=== PATIENT | male | born 1930 | race Caucasian/White ===

== ENCOUNTER 2016-11-22 13:14 | Emergency (ER) | payer MEDICARE, OTHER ==
[~2016-11-22] VITALS: Ht 180.3 cm; Wt 98.0 kg
[~2016-11-22 13:14] MED LIST: AMIODARONE HCL200 MG PO; AMOXICILLIN500 MG PO; ASPIRIN EC81 MG PO; ATENOLOL25 MG PO; AZITHROMYCIN250 MG PO; CARDIZEM CD120 MG PO; CLINDAMYCIN HC300 MG PO; DOXYCYCLINE HY100 MG PO; IRON PO; LEVOTHYROXINE200 MCG PO; MUPIROCIN22 GM TOP; POTASSIUM GLUC500 MG PO; PRADAXA75 MG PO; SLOW RELEASE47.5 MG PO; SYNTHROID175 MCG PO; TORSEMIDE10 MG PO; TRIAMCINOLONE A15 GM TOP; ZITHROMAX250 MG PO
[2016-11-22] MEDS ORDERED: MAGNESIUM400 M1 PO (13:30)
[2016-11-22] MEDS ORDERED: VITAMIN D400 UNI2 (13:31)
[2016-11-22] MEDS ORDERED: NORCO 5-325 TA1 EACH PO (15:26)
== END 2016-11-22 15:50 | disposition home or self-care (01) ==
LOC: ED 13:14
PROC: 0XQMXZZ Repair Left Thumb, External Approach (ICD-10-PCS; principal; 2016-11-22)
DX: S61.012A Laceration without foreign body of left thumb without damage to nail, initial encounter (principal); S05.22XA Ocular laceration and rupture with prolapse or loss of intraocular tissue, left eye, initial encounter; I11.0 Hypertensive heart disease with heart failure; I50.9 Heart failure, unspecified; I48.91 Unspecified atrial fibrillation; E03.9 Hypothyroidism, unspecified; Z85.828 Personal history of other malignant neoplasm of skin; Z96.652 Presence of left artificial knee joint; Z90.49 Acquired absence of other specified parts of digestive tract; Z79.899 Other long term (current) drug therapy; W01.0XXA Fall on same level from slipping, tripping and stumbling without subsequent striking against object, initial encounter
CPT/HCPCS: 12013; 70450; 71020; 99284

== ENCOUNTER 2018-02-17 07:52 | Inpatient (IN) | payer MEDICARE, OTHER ==
[~2018-02-17] VITALS: Ht 180.3 cm; Wt 90.7 kg
[~2018-02-17 07:52] MED LIST changes: +MAGNESIUM400 M1 PO; +NORCO 5-325 TA1 EACH PO; +VITAMIN D400 UNI2 PO
[2018-02-17] MEDS ORDERED: AMOXICILLIN500 MG PO (08:11)
[2018-02-17] MEDS ORDERED: TRIAMCINOLONE A15 G2 TOP (08:12)
[2018-02-17] MEDS ORDERED: TOBREX5 ML OD (16:16)
--- NOTE | 2018-02-18 07:48 | EKG ---
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 rate has increased BY 62 BPM Confirmed by BRAXTON ZHENG MD ([id number]) on 02/18/2018 7:48:37 AM Electronically Signed By: BRAXTON ZHENG MD 02/18/18 0748 PATIENT NAME: ELADIA HOWELLELISABETH COSBY Electrocardiogram DATE OF : [birth year] PHYSICIAN: BRAXTON ZHENG MD REPORT #: [id number] REPORT IS CONFIDENTIAL AND NOT TO BE RELEASED WITHOUT AUTHORIZATION
== END 2018-02-20 11:30 | disposition swing bed (61) | DRG 309 ==
LOC: ED 07:52 → CCU 09:51 → MS 02-18 14:30
PROVIDERS: ADMIT Internal Medicine
DX: I48.91 Unspecified atrial fibrillation (principal); L03.116 Cellulitis of left lower limb; L03.115 Cellulitis of right lower limb; I13.0 Hypertensive heart and chronic kidney disease with heart failure and stage 1 through stage 4 chronic kidney disease, or unspecified chronic kidney disease; I50.9 Heart failure, unspecified; N18.3 Chronic kidney disease, stage 3 (moderate); E11.22 Type 2 diabetes mellitus with diabetic chronic kidney disease; E78.5 Hyperlipidemia, unspecified; E03.9 Hypothyroidism, unspecified; M54.5 Low back pain; G47.30 Sleep apnea, unspecified; K21.9 Gastro-esophageal reflux disease without esophagitis; I89.0 Lymphedema, not elsewhere classified; D69.6 Thrombocytopenia, unspecified; S81.802A Unspecified open wound, left lower leg, initial encounter; S81.801A Unspecified open wound, right lower leg, initial encounter; Z85.46 Personal history of malignant neoplasm of prostate; Z79.2 Long term (current) use of antibiotics; Z79.01 Long term (current) use of anticoagulants; Z79.899 Other long term (current) drug therapy
CPT/HCPCS: 36415; 51701; 71045; 73630; 80048; 80053; 81001; 83605; 83735; 83880; 84484; 85025; 87040; 93005; 93010; 94660; 96361; 96365; 96375; 96376; 97110; 97116; 97162; 97166; 99285-25; C9113; G8978; G8979; J0692; J3475; J7030; J7040; J7060

== ENCOUNTER 2018-02-20 11:30 | Inpatient (IN) | payer MEDICARE, OTHER ==
[~2018-02-20] VITALS: Ht 180.3 cm; Wt 79.9 kg
[~2018-02-20 11:30] MED LIST changes: +TOBREX5 ML OD; +TRIAMCINOLONE A15 G2 TOP
--- NOTE | 2018-02-20 11:30 | NUR ---
PT ADMITTED TO SWING BED STATUS. SITTING UP IN BED WATCHING TV. IV INFUSING WNL. ASSESSMENT COMPLETED. PT DENIES NEEDS OR CONCERNS AT THIS TIME. CALL LIGHT WITHIN REACH.
--- NOTE | 2018-02-20 13:55 | NUR ---
PT REPORTS 7/10 LOW BACK PAIN. ASSISTED MULTIPLE TIMES TO REPOSITION IN BED. FLOATED HIPS ON PILLOWS AND MEDICATED WITH PRN TYLENOL. WATCHING FOOTBALL GAME. SON ELISABETH AND AT BEDSIDE. IV ABX STARTED, INFUSING WNL. CALL LIGHT WITHIN REACH.
--- NOTE | 2018-02-20 14:05 | NUR ---
PATIENT IN BED WATCHING TV. SON AND IN ROOM. VITAL SIGNS AND I&O DONE. CALL LIGHT WITHIN REACH. NO OTHER NEEDS AT THIS TIME
--- NOTE | 2018-02-20 14:06 | NUR ---
PATIENT DID NOT VOID DURING THIS PERIOD. RN NOTIFIED
--- NOTE | 2018-02-20 15:02 | NUR ---
PT RESTING IN BED. EYES CLOSED, RESP EVEN AND UNLABORED. AT BEDSIDE.
--- NOTE | 2018-02-20 15:40 | NUR ---
PT HAD LARGE INCONTINENT VOID IN BED. LINENS AND ATTENDS CHANGED. PT ASSISTED TO POSITION OF COMFORT. HIPS FLOATED ON PILLOWS AND BILATERAL LOWER EXTREMITIES ELEVATED ON PILLOWS. CALL LIGHT WITHIN REACH. AT BEDSIDE.
--- NOTE | 2018-02-20 15:41 | NUR ---
PARTIAL BED BEDBATH GIVEN. NEW GOWN AND DEPENDS. TROY CARE DONE. CALL LIGHT IN REACH. NO FURTHER NEEDS AT THIS TIME.
--- NOTE | 2018-02-20 16:00 | NUR ---
THIS RN ASSUMING CARE OF PT. THIS RN TO BEDSIDE TO CHECK ON PT. PT ASSISTED WITH REPOSITIONING IN BED. PT STATES HE HAS NO REQUESTS OR COMPLAINTS AT THIS TIME. AT BEDSIDE. CALL LIGHT WITHIN REACH.
--- NOTE | 2018-02-20 16:10 | NUR ---
REPORT GIVEN TO DAVID AGUILA.
--- NOTE | 2018-02-20 16:56 | NUR ---
ASSESSMENT DONE. PT REPOSITIONED IN BED. MILKSHAKE PROVIDED. PT REMAINS WITHIN FLUID RESTRICTIONS. PT REPORTS 5/10 PAIN AND STATES HE DOES NOT NEED ADDITIONAL PAIN MEDIAITON AT THIS TIME. BED RAILS UP. CALL LIGHT WITHIN REACH. PTS LEAVING FOR THE NIGHT. WARM BLANKETS PROVIDED.NO ADDITONAL REQUESTS OR COMPLAINTS. PT RESTING WITH EYES CLOSED. SNORNING NOTED.
--- NOTE | 2018-02-20 17:50 | NUR ---
PUMP ALARMING, INFUSION COMPLETE. IV FLUIDS CONTINUE INFUSING. MD CONSULTED REGARDING LEAVING PIV IN PLACE FOR LONGER THAN PROTOCOL. MD STATES OK TO LEAVE PIV IN LONG IT REMAINS PATENT AND WNL. ORDERS PLACED. PTS FAMILY AT BEDSIDE (SON, ELADIA), UPDATED ON PT CONDITION AND PLAN OF CARE, AND STATES ALL HIS QUESTIONS HAVE BEEN ANSWERED. PT STATES HE HAS NO ADDITIONAL REQUESTS OR COMPLAINTS AT THIS TIME. BED RAILSUP. CALL LIGHT WITHIN REACH.
--- NOTE | 2018-02-20 17:54 | NUR ---
PATIENT IN BED WATCHING TV. FAMILY IN ROOM. FRESH WATER GIVEN. CALL LIGHT IN REACH. NO FURTHER NEEDS AT THIS TIME.
--- NOTE | 2018-02-20 17:58 | NUR ---
PT TRANSITIONED TO SWING BED TODAY FOR LLE CELLULITIS. 2PA, FWW. PT TOLERATING CARDIAC DIET WITH 1800ML FLUID RESTRICTION WELL. TELE #6 SHOWS IRREGULAR RHYTHEM TODAY WITH FREQUENT PVC'S PER PT BASELINE. PT/OT INVOLVED WITH CARE, IN TO SEE PT TODAY. LLE CONTINUES TO BE RED AND HOT WITH EDEMA. SOME WEEPING FROM EXTREMITY NOTED THIS SHIFT. PT HAD INCONTINANT EPISODE TODAY, DEPENDS IN PLACE, URINAL AT BEDSIDE. IV ABX CONTINUE, MD ORDER TO LEAVE PIV IN PLACE LONG IT REAMINS PATENT AND WNL. PT USES CALL LIGTH APPROPRIATLY.
--- NOTE | 2018-02-20 19:12 | NUR ---
BEDSIDE REPORT RECEIVED FROM MINGO HOOPER. PT RESTING IN BED WITH EYES CLOSED. BREATHING EQUAL AND NON-LABORED. HOB ELEVATED. IVF INFUSING.
--- NOTE | 2018-02-20 19:22 | NUR ---
IN PT ROOM, IV SALINE LOCKED ORDERED. PT AWAKE, WATCHING TV AT THIS TIME. TISSUES PROVIDED. CPAP APPLIED. LIGHTS OFF IN ROOM REQUESTED.
--- NOTE | 2018-02-20 21:35 | NUR ---
BOILER MECHANIC LELAND AND I HELPED PATIENT USE THE BEDSIDE COMMODE USING WALKER AND BACK TO BED. CHANGED BED LINEN. V/S AND I&O DONE AND CHARTED.
--- NOTE | 2018-02-20 21:51 | NUR ---
PT ASSESSMENT COMPLETE. PT DROWSY, AWAKENS TO VOICE. REFUSES HOME CPAP AT THIS TIME. LUNG SOUNDS CLEAR THROUGHOUT ALL LOBES. HR IRREGULAR RHYTHM. 83-87 ON TELE 6. LEGS ELEVATED WITH PILLOWS. REDNESS NOTED BLE, STRONG PEDAL PULSES, WARMTH TO LLE. IV ANTIBIOTIC INFUSING WNL, FLUSHED WNL. CALL LIGHT IN REACH. ICE WATER PROVIDED.
--- NOTE | 2018-02-20 22:55 | NUR ---
IN PT ROOM TO CHECK ON PT, REPLACE TELE BATTERY. PT RESTING IN BED AWAKE, STATES "I WANT TO GO HOME, I DON'T FEEL WELL". PRN ZOFRAN ADMINISTERED, PRN TYLENOL FOR "GENERALIZED DISCOMFORT" PER PT. PT INCONTINENT OF URINE, ATTENDS, CHUX CHANGED. REDENNED AREA NOTED ON SCROTUM. BARRIER CREAM APPLIED. CALL LIGHT IN LAP.
--- NOTE | 2018-02-21 00:34 | NUR ---
CALL LIGHT ANSWERED, PT REQUESTING "SOMEONE COME IN HIS ROOM". INCONTINENT OF URINE, PT UPSET REGARDING INCONTINENCE, INABILITY TO USE URINAL IN BED. PT PLANS TO CALL FOR ASSISTANCE TO STAND AT BEDSIDE TO USE URINAL FOR NEXT VOID. ATTENDS AND CHUX CHANGED, BARRIER CREAM APPLIED TO SCROTUM AND BUTTOCKS. LEGS ELEVATED ON PILLOWS. CALL LIGHT IN REACH.
--- NOTE | 2018-02-21 01:25 | NUR ---
CALL LIGHT ANSWERED, PT ASSISTED TO REPOSITION IN BED, PT REFUSES TO HAVE LEGS ELEVATED AT THIS TIME. REFUSES CPAP. IV ANTIBIOTIC INFUSING WNL. PT HAS CALL LIGHT IN LAP. LIGHTS OFF IN ROOM.
--- NOTE | 2018-02-21 01:51 | NUR ---
IV CEFEPIME INFUSION COMPLETE. IV SALINE LOCKED. PT SLEEPING, DROWSY, AWAKENS TO VOICE AND BACK TO SLEEP. NO REQUESTS AT THIS TIME. CALL LIGHT IN LAP.
--- NOTE | 2018-02-21 03:09 | NUR ---
CALL LIGHT ANSWERED, 2PA TO BSC WITH FWW FOR VOID. CCU RN IN ROOM TO NOTIFY PT IN SVT, HR 130S-160S SUSTAINED. BP 130/86 (97). PT DENIES SOB, DENIES CHEST PAIN. HR BACK DOWN TO 95-100S IRREGULAR RHYTHM PRIOR TO RNS LEAVING ROOM. SPO2 98% ON RA. NOTIFIED. NO NEW ORDERS. CALL LIGHT IN REACH. PT INSTRUCTED TO STAY IN BED, USE URINAL FOR REMAINDER OF SHIFT.
--- NOTE | 2018-02-21 05:00 | NUR ---
PT RESTING IN BED, EYES CLOSED, BREATHING EQUAL AND NON-LABORED. CALL LIGHT IN LAP. HR IRREGULAR RANGING FROM 95-120S ON TELE 6. LIGHTS OFF IN ROOM.
--- NOTE | 2018-02-21 05:03 | NUR ---
PT ON SWING BED. NOTIFIED OF SVT, HR IN 130S-160S THIS SHIFT, VSS. PT INCONTINENT OF URINE. REDNESS NOTED ON SCROTAL AREA, BARRIER CREAM APPLIED. PT USING CALL LIGHT APPROPRIATELY. 2PA W FWW, PT ENCOURAGED TO STAY IN BED FOR MORNING HOURS D/T ELEVATED HR. TELE 6, HR IRREGULAR. LLE EDEMETOUS, REDNESS WITHIN MARGINS, PEDAL PULSES PALPABLE BLE, SENSATION INTACT. LEGS ELEVATED TOLERATED. PT REFUSES HOME CPAP THIS SHIFT.
--- NOTE | 2018-02-21 06:50 | NUR ---
ROUNDED ON PATIENT TO ADMINISTER SCHEDULED MEDICATIONS PER ORDER PER PRIMARY RNMARGO. IV ASSESSED TO BE PATENT AFTER ADJUSTING DRESSING, NO SIGNS OF INFILTRATION. IV ANTIBIOTIC INFUSING. DRESSING COMING UP ON EDGES AFTER MARGO RN ATTEMPTED TO ADJUST DRESSING AROUND IV. PATIENT MOVED DURING DRESSING ADJUSTMENT, IV NO LONGER PATENT. IV ANTIBIOTICS ON STANDBY. REPORTED TO DAY SHIFT RNSANDIE THAT IV ABX IS ON STANDBY AND HAS NO IV. MINGO HOOPER TO RESTARTE IV AND TO RETIME ANTIBIOTICS.
--- NOTE | 2018-02-21 07:15 | NUR ---
PT DROWSY, AWAKENS TO VOICE. ORIENTED X 3. INCONTINENT OF URINE, ATTENDS CHANGED. BARRIER CREAM APPLIED. IV INFILTRATED, D/C'D WNL. MINGO HOOPER TO RESTART IV AND RETIME SCANNED CEFEPIME. HANDOFF REPORT GIVEN TO MINGO HOOPER. HR REMAINS IN THE 120S, IRREGULAR RHTYHM ON TELE 6. PT FLOATING ON PILLOWS, REDNESS NOTED ON BACKSIDE, BLANCHABLE.
--- NOTE | 2018-02-21 07:30 | NUR ---
THIS RN RECEIVED REPORT FROM MINGO ARAGON. PT APPEARS PALE, TACHYCARDIC AND STATES "I FEEL LIKE CRAP." PT DENIES CHEST PAIN. VITALS TAKEN. MINGO ARAGON, STATES PIV HAD TO BE DC'D. CHARGE NURSE NOTIFIED OF PT CONDITION. CHARGE NURSE TO BEDSIDE. MD NOTIFIED. MD STATES TO GIVE MORNING MEDICATIONS EARLY. MEDICATIONS GIVEN. PT HAS DIFFICULTY SUCKING FROM STRAW. CHARGE NURSE, EDWIGE, AT BEDSIDE STARTING NEW PIV. FAMILY CALLED AND UPDATED.
--- NOTE | 2018-02-21 08:23 | NUR ---
MORNING ASSESSMENT DONE. MD TO BEDSIDE FOR EVALUATION. NEW PIV START ATTEMPTED, CHART NURSE AND CCU RN CALLED FOR ASSISTANCE, NO SUCESSFULL ATTEMPTS AT THIS TIME. AWAITING ADDITIONAL ASSISTANCE. PT REPORTS PAIN BUT IS UNABLE TO RATE HIS PAIN FACES SCALE SHOWS 6/10 PAIN. SEE MAR FOR MEDICATION GIVEN. PT CONTINUES TO HAVE DRY HACKING COUGH. LLE RED AND HOT. PT HAS INCONTINANCE EPISODE, DEPENDS CHANGED, TROY CARE DONE, BARRIER CREAM APPLIED. BED RAILS UP. CALL LIGHT WITHIN REACH. BED ALARM ON.
--- NOTE | 2018-02-21 09:38 | NUR ---
THIS RN TO ROOM TO CHECK ON PT. PT UP TO CHAIR AND SMILING. PT REPORTS "FEELING MUCH BETTER." HR NOW 80-90'S. WARM BLANKETS PROVIDED. PT ASSISTED WITH ORDERING BREAKFAST. CALL LIGHT WITHIN REACH. LEGS ELEVATED.
--- NOTE | 2018-02-21 10:14 | NUR ---
THIS RN TO ROOM TO CHECK ON PT. PT EATING BREAKFAST. WHEN ASKED TO RATE HIS PAIN PT STATES "[id number], JUST PICK ONE" AND STARTS LAUGHING. PT JOKING AND SMILING AND STATES HE IS "FEELING MUCH BETTER." TELE BATTERY REPLACED. EPHRAIM WORKING WITH PT TO START NEW PIV. NO ADDITIONAL REQUESTS OR COMPLAINTS. CALL LIGHT WITHIN REACH.
--- NOTE | 2018-02-21 11:00 | NUR ---
PER JOVANI Dick RN, 22 G IV PLACED IN RIGHT FOREARM ON FIRST ATTEMPT. PER REPORT FROM MINGO HOGAN, AND MINGO HOOPER, [address] WERE UNSUCCESSFUL.
--- NOTE | 2018-02-21 11:00 | NUR ---
THIS RN INFORMED THAT NEW PIV HAS BEEN PLACED. PIV ASSESSED, WNL, BLOOD RETURN NOTED. PT REPORTS PAIN IN RIGHT HIP. ASSISTED UP TO STAND TO REPOSITION. BRUISE NOTED ON RIGHT HIP. PAD PLACED BEHIND RIGHT HIP. PT STATES PAIN IS "BETTER." CEFEPIME RESTRATED, INFUSING CONCURRENTLY WITH IV FLUIDS. COLLET DRILLER AT BEDSIDE ASSISTING PT TO SHAVE. PT STATES HE WOULD LIKE A NAP. COLLET DRILLER AWARE. QUITE ENVIRONEMENT TO BE ESTABLISHED AFTER SHAVE. CALL LIGHT WITHIN REACH. AT BEDSIDE.
--- NOTE | 2018-02-21 11:06 | NUR ---
ATTEMPTED IV INSERTION NOTE. I WAS ASKED BY DR ZHENG TO EVALUATE FOR IV ACCESS AFTER MULTIPLE OTHER FAILED ATTEMPTS. THE RIGHT AC AND UPPER ARM IS COVERED WITH BANDAGES SO THE LEFT AC WAS EVALUATED. LOCAL ANESTHETIC WAS USED (1% LIDOCANE PLAIN 0.5 ML PER SITE) FOR FAILED ATTEMPTS TO START AN IV IN THE LEFT AC, LEFT BASILC 3CM ABOVE THE AC AND 6CM ABOVE THE AC. EACH TIME THE VEIN WAS ACCESSED BUT THE CATHETER WOULD NOT THREAD UP THE VEIN. JOVANI Alvarez FROM THE ER WAS CALLED AND SHE QUICKLY OBTAINED IV ACCESS IN THE RIGHT FOREARM WITH ONE ATTEMPT.
--- NOTE | 2018-02-21 11:51 | NUR ---
Patient requested a shave. face washed, upper body washed, fresh water given, call light in reach. patient is setting up in his shair in room. is at bed side.
--- NOTE | 2018-02-21 11:52 | NUR ---
MD CONSULTED REGARDING IV FLUIDS, MD STATES THEY ARE NO LONGER NEEDED. IV FLUIDS STOPPED PER MED ORDER. IV INFUSING CEFEPIME, NEW TUBING HUNG WITH NS SET TO FLUSH AFTER INFUSION IS COMPLETE. PT REPORTS 4/10 PAIN AND STATES HE DOES NOT NEED MEDICATION AT THIS TIME. PT UP TO CHAIR. AT CHAIRSIDE. CALL LIGHT WITHIN REACH. NAP TIME SIGN OFFERED. PT AND REFUSE THEY HAVE FAMILY COMING TO VISIT. NO ADDITIONAL REQUESTS OR COMLAINTS AT THIS TIME.
--- NOTE | 2018-02-21 14:09 | NUR ---
PTS LUNCH ARRIVED. THIS RN TO ROOM. PT REPOSITIONED IN CHAIR FOR LUNCH. PT EATING LUNCH AND VISITING WITH FAMILY. NO ADDITIONAL REQUESTS OR COMPLAINTS AT THIS TIME. CALL LIGHT WITHIN REACH.
--- NOTE | 2018-02-21 15:04 | NUR ---
MEDICATION DUE. TIFFANY, RN STATES IV INFUSION FINISHED AND SHE SALINE LOCKED PT. THIS RN TO ROOM TO START NEXT ABX INFUSION. PT REQUESTS ASSISTANCE UP TO RESTROOM. 2PA, FWW TO COMODE. PT VOIDS AND HAS BM. TROY CARE DONE. PT BACK TO CHAIR. PT DENIES NEED FOR PAIN MEDICATION AND STATING "I'M FEELING PRETTY GOOD." PIV ASSESSED, WNL. BLOOD RETURN NOTED. IV ABX STARTED (SEE APR). NO ADDITIONAL REQUESTS OR COMPLAINTS AT THIS TIME. AT BEDSIDE. CALL LIGHT WITHIN REACH.
--- NOTE | 2018-02-21 15:28 | NUR ---
PTS REQUESTS THAT HER SON, Mel ELADIA, BE CALLED AND UPDATED. CALL ATTEMPTED. NO ANSWER AT THIS TIME. WILL TRY AGAIN.
--- NOTE | 2018-02-21 15:39 | NUR ---
PATIENT IS UP IN HIS CHAIR, IS IN THE ROOM WITH HIM, ATE A GOOD LUCNH, WAS ABLE TO USE THE BED SIDE COMODE TWICE . FRESH WATER GIVEN AND CALL LIGHT IN REACH.
--- NOTE | 2018-02-21 15:40 | NUR ---
CALLED REGARDING MAGNESIUM ORDERS. STATES OK TO CHANGE ADMINISTRATION TIME TO 1999 TO BE GIVEN BETWEEN CEFEPIME INFUSIONS. NEW ORDERS PLACED.
--- NOTE | 2018-02-21 16:59 | NUR ---
PT CALL LIGHT ON. PT STATES "I FEEL MISERABLE." PT STATES HE "MAYBE" HAS A HEADACHE. PT REQUESTS TYLENOL. ENSURE MILKSHAKE OFFERED. PT SMILES AND STATES "THAT MIGHT HELP A LOT." ENSURE MILK SHAKE PROVIDED. THIS RN OFFERES TO PLAY A GAME WITH PT BUT PT STATES "I'M TOO TIRED." CALL LIGHT JIMMY REACH. NO ADDITIONAL REQUESTS OR COMPLAINTS.
--- NOTE | 2018-02-21 17:06 | NUR ---
PTS SON (DR. MONTILLA) CALLED AND UPDATED ON PT CONDITION. DR. MONTILLA VERBALIZES UNDERSTANDING AND STATES HE HAS NO ADDITIONAL QUESTIONS OR CONCERNS AT THIS TIME.
--- NOTE | 2018-02-21 17:27 | NUR ---
PT SWING BED FOR IV ABX R/T LLE CELLULITIS. EPISODES OF TACHYCARDIA EARLY THIS SHIFT AND LATE LAST SHIFT. ADDITIONAL CARDIAC MEDICAITONS GIVEN. HR 60-90'S FOR THE REMAINDER OF THIS SHIFT. PT REMAINS ON TELE #6. PT UP TO CHAIR. TYLENOL GIVEN X2 FOR BACK AND LEG PAIN. PT/OT INVOLVED FOR STRENGTH BUILDING. OCCATIONAL INCONTINANCE, DEPENDS IN PLACE. PT TOLERATING CARDIAC DIET WITH 1800ML FLUID RESTRICTION. BARRIER CREAM AND DEPENDS IN PLACE, FRAGILE SKIN. NEW PIV TODAY. CPAP MACHINE AT BEDSIDE FOR SLEEP. IV ABX. MAG RIDER DUE THIS EVENING. VOIDING QUANTITY SUFFICIENT. PT INCONSISTANT WITH CALL LIGHT.
--- NOTE | 2018-02-21 17:45 | NUR ---
PT ASSISTED UP TO COMODE. PT VOIDS 250ML WITHOUT ISSUE. FRESH DEPENDS PLACED. TROY CARE DONE. PT BACK TO CHAIR. WARM BLANKETS PROVIDED. CALL LIGHT WITHIN REACH.
--- NOTE | 2018-02-21 19:00 | NUR ---
PT REQUESTS ASSISTANCE BACK TO BED. PT ASSISTED UP FROM CHAIR, 2PA, FWW. ATTENDS CHANGED, TROY CARE DONE. PT BACK TO BED. WARM BLANETS PROVIDED. PT STATES "SOMETHING JUST DOESN'T FEEL RIGHT." PT ASKED IF HE IS UNCOMFORTABLE. PT STATES "NO THATS NOT IT." PT ASKED IF HE IS CONFUSED. PT STATES "YES." PT REORIENTED TO PLACE, TIME, AND EVENTS. MENTAL RELAXATION DONE. PT RELAXES TOES, KNEES, HIPS, ARMS, SHOULDERS AND FINALLY FACIAL MUSLCES AT THE END OF WHICH PT IS DOZING. RESPIRATIOS REGULAR RATE AND RHYTHEM. HR = 80, SR WITH OCCATIONAL PVC'S. LIGHT DIMMED. FOOTBALL GAME REAMINS ON. REPORT GIVEN TO GRAHAM, RNS. CALL LIGHT WITHIN REACH. NO ADDITIONAL REQUESTS OR COMPLAINTS.
--- NOTE | 2018-02-21 19:22 | NUR ---
RECIEVED CHANGE OF SHIFT REPORT FROM SANDIE AGUILA. PATIENT RESTING IN BED, AWAKES TO VERBAL STIMULI. PATIENT DENIES PAIN. WHITE BOARD UPDATED. NO MORE NEEDS AT THIS TIME. CALL LIGHT WITHIN REACH.
--- NOTE | 2018-02-21 20:20 | NUR ---
ASSESSMENT COMPLETE. PATIENT DENIES HAVING PAIN. IV ASSESS TO BE PATENT, NO SIGNS OF REDNESS OR SWELLING, PATIENT DENIES PAIN. SCHEDULED MEDICATIONS PROVIDED PER ORDER. SON AT BEDSIDE VISITING WITH PATIENT. VITALS ASSESSED AND RECORDED. INPUT AND OUTPUT RECORDED. PATINET DENIES HAVING DIFFICULTY BREATHING, SOB, OR CHEST PAIN. TELE MONITOR 6, HR: 73. BLE ELEVATED ON 2 PILLOWS. LLE RED AND WARM TO TOUCH. ENCOURAGED/EDUCATED PATIENT ON INCREASING FLUID INTAKE TO MEET DAILY FLUID RESTRICTION. WARM BLANKET PROVIDED TO PATIENT. POSSESSIONS AT BEDSIDE. NO MORE NEEDS AT THIS TIME. CALL LIGHT WITHIN REACH.
--- NOTE | 2018-02-21 21:40 | NUR ---
IV ABX INFUSING PER ORDER. PATIENT RESTING IN BED. DENIES ANY NEEDS AT THIS TIME. CALL LIGHT WITHIN REACH.
--- NOTE | 2018-02-21 23:07 | NUR ---
PATIENT CALLED WANTING TO LAY ON LEFT SIDE. DONE.
--- NOTE | 2018-02-21 23:18 | NUR ---
PATIENT REPOSITIONED IN BED TO HIS LEFT SIDE. ALLYVN PLACED ON COCYX PATIENT HAS A RED SPOT ON HIS COCYX, IT IS BLANCHABLE. PATIENT DENIES ANY FURTHER NEEDS CALL LIGHT IN REACH.
--- NOTE | 2018-02-22 00:22 | NUR ---
ROUNDED ON PATIENT RESTING IN BED, RESPIRATORY RATE IS EVEN AND UNLABORED, RR: 18. IV ABX INFUSING PER ORDER. NO SIGN OF TENSING OR GRIMACING. CALL LIGHT WITHIN REACH.
--- NOTE | 2018-02-22 01:00 | NUR ---
ROUNDED ON PATIENT TO REPOSITION IN BED. SKIN ASSESSMENT COMPLETE. PRN PAIN MEDICATION PROVIDED FOR GENERALIZED DISCOMFORT AND PAIN ON RIGHT SIDE OF BUTTOCKS. CALL LIGHT WITHIN REACH. NO MORE NEEDS AT THIS TIME.
--- NOTE | 2018-02-22 02:52 | NUR ---
ROUNDED ON PATIENT. PATIENT AWOKE WHEN THIS RN ENTERED ROOM. PATIENT DENIES PAIN AND STATES FEELING "UNCOMFORTABLE". THIS RN LEFT ROOM TO GET ANOTHER RN TO REPOSITION PATIENT. UPON RETURNING PATIENT FOUND RESTING IN BED WITH EYES CLOSED, RESPIRATORY RATE, EVEN AND UNLABORED. NO SIGN OF TENSING OR GRIMACING. CALL LIGHT WITHIN REACH.
--- NOTE | 2018-02-22 03:32 | NUR ---
PATIENT ASSISTED TO THE BSC A 2PA W/FWW. PATIENT WAS INCONTINENT OF URINE. PATIENT WAS ALSO ABLE TO VOID. PATIENTS ATTEND CHANGED. TROY CARE COMPLETED. BARRIER CREAM APPLIED. PATIENT IS NOW BACK IN BED RESTING. PATIENT DENIES ANY FURTHER NEEDS. CALL LIGHT IN REACH. WARM BLANKET PROVIDED.
--- NOTE | 2018-02-22 05:03 | NUR ---
SLEPT ON AND OFF THROUGHOUT THE NIGHT. SWING BED. PRN PAIN MEDICATION PROVIDED X1 FOR PAIN AND GENERALIZED DISCOMFORT. ALLYVEN PLACED ON REDDENED AREA OVER COCCYX. CARDIAC DIET WITH 1800 FLUID RESTRICTION, ENCOURAGED PO FLUIDS TO MEET 1800 FLUID RESTRICTION. PATIENT ABLE TO STAND AND PIVOT TO BEDSIDE COMMODE A 2 PA WITH FWW. OCCASIONALLY INCONTINENT. TELE 6, IRREGULAR RHYTHM, HR 70-80'S. RESTLESS THROUGHOUT THE NIGHT. WORKING WITH PT/OT. RECIEVED X1 MAG RIDER.
--- NOTE | 2018-02-22 05:13 | NUR ---
PATIENT ASSISTED TO STAND AT THE BEDSIDE. PATIENT WAS ABLE TO VOID AND USE THE URINAL. PATIENT WAS ALSO INCONTINENT OF URINE. ASSISTANT FLOOR COVERING PRINTER ASSISTED IN CHANGING BEDDING. TROY CARE COMPLETED. PATIENT IS NOW BACK IN BED RESTING. PATIENT DENIES PAIN AND SOB. PATIENT DENIES ANY NEEDS. CALL LIGHT IN REACH. INTAKE AND OUTPUT RECORDED.
--- NOTE | 2018-02-22 06:00 | NUR ---
ROUNDED ON PATIENT FOR MEDICATION ADMINSTRATION PER MAR ORDER. PATIENT HOB ELEVATED PER PATIENT REQUEST. CALL LIGHT WITHIN REACH. NO MORE NEEDS AT THIS TIME.
--- NOTE | 2018-02-22 07:31 | NUR ---
pATIENT WAS AWAKE SETIING UP WATCHING TV, FACE WASHED CALL LIGHT IN REACH, PATIENT IS ON FULID RESTRICTION. NO EXTRA WATER GIVEN, CALL LIGHT IN REACH.
--- NOTE | 2018-02-22 07:46 | NUR ---
REPORT RECEIVED FRIM BUFF WHEEL FABRICATOR RN. PT AAO IN BED WITH BREAKFAST. DENIES PAIN OR NEEDS. CALL LIGHT IN REACH.
--- NOTE | 2018-02-22 08:38 | NUR ---
PT CALLED TO USE BSC. ATTENDS ALREADY WET. LORENA, FIREPROOF DOOR MAKER, AND THIS RN HELPED PATIENT TO BSC, CHANGED ATTENDS, PROVIDED BED BATH WITH WARM WIPES, AND CHANGED LINENS. TRANSFERRED FROM BSC TO RECLINER. WARM BLANKETS PROVIDED AND BILAT LEGS ELEVATED WITH PILLOWS. URINATED 200 MORE WHEN ON BSC. PATIENT TOLERATED TRANSFERS WELL. 2PA FWW.
--- NOTE | 2018-02-22 09:45 | NUR ---
PT REPORTING 10/10 PAIN IN BUTTOCKS. PT UP IN CHAIR WITH PILLOWS UNDER BUTTOCKS. TYLENOL ADMINISTERED. DONUT PLACED UNDER BUTTOCKS. PT REPORTS "IT FEELS BETTER".
--- NOTE | 2018-02-22 10:20 | NUR ---
PHYSICAL THERAPY IN TO WORK WITH PT. SBA TO BATHROOM. 1 MED BM THEN BACK TO CHAIR.
--- NOTE | 2018-02-22 11:14 | NUR ---
OT AT BEDSIDE WORKING WITH PT.
--- NOTE | 2018-02-22 14:07 | NUR ---
PT SITTING IN CHAIR, HAD JUST FINISHED LUNCH. EVERYTHING GOOD EXCEPT THE SOUP! WAS JUST LEAVING FOR APPT, VERY PLEASANT. PT FEELING BETTER, ALERT AND RESPONSEIVE. PT REQUESTED PRAYER, WILL FOLLOW NEEDED
--- NOTE | 2018-02-22 14:52 | NUR ---
ORDER RECEIVED FOR WOUND CONSULT. PATIENT INTERVIEWED AND HE REPORTS WEARING A COMPRESSION-TYPE SUPPORT (KNEE HIGH) AT HOME. PATIENT REPORTS HIS USUALLY PUTS THEM ON EVERY MORNING. PATIENT VERBALIZES THAT HE DOES NOT TOLERATE COMPRESSION SOCKS. PATIENT DOES REPORT SENSITIVITY TO HIS FEET. AN ALLEVYN DRESSING IS NOTED TO THE POSTERIOR ASPECT OF THE PATIENTS RIGHT CALF. A SMALL AMOUNT OF DRAINAGE IS NOTED THROUGH THE DRESSING. CHRONIC DISCOLORATION IS NOTED TO LEGS, BILATERALLY. PATIENT'S LEGS ARE ELEVATED WITH THE RECLINER AND HE TOLERATES THAT WELL. PATIENT IS AMICABLE TO NAV WRAPS BEING APPLIED TO HIS LEGS, BILATERALLY. PT IS PRESENT IN THE ROOM TO AMBULATE WITH PATIENT.
--- NOTE | 2018-02-22 15:07 | NUR ---
NAV WRAPS APPLIED TO LEGS, BILATERALLY. PATIENT TOLERATES THAT WELL. SMALL, DRY, BROWN WOUND IS NOTED TO THE BALL OF HIS LEFT FOOT.
--- NOTE | 2018-02-22 17:00 | NUR ---
PT SBA BACK TO BED. TOLERATED WELL.
--- NOTE | 2018-02-22 19:10 | NUR ---
SHIFT REPORT RECEIVED. PATIENT REPORTS HE HAS BEEN INCONTINENT OF URINE AND REQUEST ASSISTANCE. BELT BUILDER HELPER TAMIE NOTIFIED TO ASSIST.
--- NOTE | 2018-02-22 20:19 | NUR ---
WITH THE HELP OF MINGO MATHEW WE CHANGED PT'S ATTEND INCONTINENT OF URINE. GOWN CHANGED WELL. BEDSIDE TABLE AND CALL LIGH IN REACH. PT NEEDS NOTHING MORE AT THIS TIME.
--- NOTE | 2018-02-22 20:21 | NUR ---
VITALS AND I&OS DONE AND CHARTED.
--- NOTE | 2018-02-22 22:30 | NUR ---
EVENING MEDS PROVIDED TO PATIENT PER ORDER. PATIENT IS AAOX3, HOWEVER APPEARS FORGETFUL. PATIENT HAS BEEN INCONTINENT OF LARGE AMOUNTS OF URINE. PATIENT STATES "THEY TOLD ME TO JUST PEE IN THE BED AND THEN IT WILL GET CLEANED UP". REMINDED PATIENT TO USE CALL LIGHT FOR ASSIST TO THE BATHROOM OR TO USE THE URNAL. PATIENT AGREES. FRESH ATTENDS AND LINEN PROVIDED, BARRIER CREAM APPLIED. ALYVEN ON COCCYX IN PLACE. MULTIPLE BRUISES NOTED. DRESSINGS ON RIGHT ARM ARE INTACT. IV SITE WNL, FLUSHES EASILY. LUNGS ARE CLEAR WITH DIMINISHED BASES. ABD ROUND, SOFT, BOWEL SOUNDS ACTIVE. REDNESS NOTED ON INNER LEFT THIGH, AREA OUTLINED. BILATERAL EDEMA IN LOWER EXTREMITITES, 3+ ON THE LEFT AND 2+ ON THE RIGHT. DRESSINGS ON LOWER EXTREMITIES PLACED BY WOULD CONSULT NURSE, LEFT INTACT. PATIENT REPORTS BEING COMFORTABLE AT THIS TIME. CALL LIGHT IN HAND.
--- NOTE | 2018-02-23 00:45 | NUR ---
PATIENT CALLED TO BE COVERED WITH ADDITIONAL BLANKETS. CREDIT REVIEW OFFICER MAY ASSISTED.
--- NOTE | 2018-02-23 02:26 | NUR ---
PATIENT UP TO BSC. 2PA. TOLERATED WELL. NEW ATTENDS AND LINEN PROVIDED. PATIENT HEAVILY SATURATION HIS ATTENDS. PATIENT BACK TO BED. POSITIONED FOR COMFORT. CALL LIGHT IN REACH.
--- NOTE | 2018-02-23 02:34 | NUR ---
WITH THE HELP OF MINGO MATHEW WE DID A COMPLETE BED CHANGE DUE TO INCONTINCE OF URINE. HELPED PT TO THE BSC AND BACK TO BED WITH HIS FWW. BEDSIDE TABLE AND CALL LIGHT IN REACH. PT NEEDS NOTHING MORE AT THIS TIME.
--- NOTE | 2018-02-23 03:00 | NUR ---
PATIENT CALLED FOR ASSISTANCE. DRAG CAR RACER WENT INTO THE ROOM. PATIENT'S IV ABX FINISHED. PATIENT NOW SL. PATIENT TALKING ABOUT GETTING UP FOR THE DAY AND BEING UNABLE TO SLEEP. DRAG CAR RACER ENCOURAGED PATIENT TO ATTEMPT TO SLEEP FOR A WHILE LONGER. PATIENT AGREES.
--- NOTE | 2018-02-23 03:15 | NUR ---
PATIENT REQUEST HIS TV BE TURNED ON. STATES "I CAN'T SLEEP SO I MIGHT WELL DO SOMETHING TO BE CONNECTED TO THIS WORLD". ENCOURAGED PATIENT TO LEAVE TV OFF AND ATTEMPT TO SLEEP. PATIENT REPLIED "I'M TOO WORRIED TO SLEEP, I MIGHT NOT WAKE UP". REASSURED PATIENT THAT HIS CURRENT CONDITION HAS BEEN IMPROVING AND REMINDED HIM OF IMPORTANCE OF RESTING TO HAVE ENERGY FOR PHYSICAL THERAPY IN THE MORNING. PATIENT REPLIED THAT HE STILL COULDN'T SLEEP AND WANTS THE TV ON. TV TURNED ON AND REMOTE GIVEN TO PATIENT PER REQUEST.
--- NOTE | 2018-02-23 03:25 | NUR ---
PATIENT REPORTS THE URGE TO VOID. ASSISTED PATIENT UP TO BS, 2PA W/FWW. PATIENT TOLERATED WELL. PATIENT SAT ON BSC FOR SEVERAL MINS AND THEN REQUEST TO SIT IN THE RECLINER AND "GET UP FOR THE DAY". DISCUSSED THE TRANSFER MAN HOUR AND IMPORTANCE OF SLEEP. PATIENT REQUEST TO CALL HIS . TOOL MARKER ASSURED PATIENT HE SHOULD SLEEP FOR A FEW HOURS PRIOR TO GETTING UP FOR THE DAY AND THAT WE WOULD ASSIST TO CALL HIS IN THE MORNING. PATIENT IS AGREEABLE TO THIS. PRN TYLENOL PROVIDED FOR GENERAL ACHES AND PATIENT VERBILIZED GRATITUDE TO STAFF. PATIENT RESTING IN BED NOW, WARM BLANKET PROVIDED. CALL LIGHT IN REACH.
--- NOTE | 2018-02-23 04:23 | NUR ---
HELPED PT USE THE URINAL. CALL LIGHT IN REACH. PT NEEDS NOTHING MORE AT THSI TIME.
--- NOTE | 2018-02-23 05:30 | NUR ---
PATIENT HAS BEEN INSISTENT THAT HE NEEDS A BOWL TO MIX A SOLUTION FOR DENTAL IMPRESSIONS FOR HIMSELF. PATIENT IS ORIENTED TO SURROUNDINGS, EVENT, AND SELF. ATTEMPTS TO REORIENT PATIENT TO LACK OF SUPPLIES OR ABILITY TO MAKE DENTAL IMPRESSIONS IN THE HOSPITAL HAVE BEEN UNSUCESSFUL. RN CARDIOVASCULAR ICU IN TO TALK WITH PATIENT. PATIENT APPEARS FRUSTERATED.
--- NOTE | 2018-02-23 05:45 | NUR ---
PATIENT YELLING AT LAB STAFF THAT HE NEEDS TO GET UP FOR THE DAY, LAB REQUEST ASSISTANCE. INFORMED PATIENT THAT NURSING STAFF WOULD GET HIM UP FOR THE DAY SOON TWO STAFF WERE AVAILABLE TO HELP WITH TRANSFER AND LAB WAS DONE DRAWING BLOOD. PATIENT STATES "IT TAKES AN HOUR TO GET ANYONES HELP AROUND HERE, NO ONE HAS BEEN ANSWERING MY CALL LIGHT OR HELPING ME". REMINDED PATIENT THAT CALL LIGHT WAS ANSWERED PROMPTLY THROUGHOUT THE NIGHT AND ASSURED HIM I WOULD RETURN WITH ASSISTANCE ABRIL.
--- NOTE | 2018-02-23 05:55 | NUR ---
SALES ASSOCIATE KEY HOLDER AND MAY ASSISTED PATIENT UP TO BSC. PATIENT TOLERATED 2PA TRANSFER WELL. PATIENT ABLE TO VOID, FRESH ATTENDS IN PLACE. THIS RN AND SOFTWARE APPLICATIONS DEVELOPER MAY ASSISTED PATIENT ONTO STANDING SCALE AND THEN TO RECLINER. PATIENT REQUEST TO CALL HIS , WHICH WAS DONE FOR HIM. CALL LIGHT IN PATIENT'S LAP AND PATIENT TALKING TO HIS ON THE PHONE.
--- NOTE | 2018-02-23 06:10 | NUR ---
WITH THE HELP OF MINGO HA WE HELPED PT TO THE BSC WITH HIS FWW. WITH THE HELP FROM MINGO MATHEW WE GOT PT TO THE CHAIR FROM THE BSC WITH HIS FWW. DID A DAILY STANDING WEIGHT WELL. BEDSIDE TABLE AND CALL LIGHT IN REACH. PT CALLED HIS ON THE PHONE PER HIS REQUEST. BLANKET GIVEN .
--- NOTE | 2018-02-23 07:00 | NUR ---
PATIENT DID NOT APPEAR TO SLEEP HARDLY AT ALL THIS SHIFT. PATIENT DENIES PAIN. APPEARED TO BECOME MORE CONFUSED THE NIGHT WENT ON, REORIENTED PRN. 2PA UP TO BSC. LARGE AMOUNT OF URINE OUTPUT. 9LB WEIGHT LOSS SINCE YESTERDAY. FLUID RESTRICTION, PATIENT HAS NOT BEEN MEETING THIS. ENCOURAGE ORAL FLUIDS. NAV WRAPS TO MEENA LOWER EXTREMITIES. EDEMA IMPROVED. DRESSING INTACT ON ARMS AND LEGS.
--- NOTE | 2018-02-23 07:35 | NUR ---
PT AWAKE, ALERT AND ORIENTED X3. PER REPORT PT FORGETFUL. PT DENIES PAIN AT THIS TIME. PT REQUESTED TO VOID DURING SHIFT CHANGE, Q/S. PERSONAL SUPPLIES AND CALL LIGHT WITHIN REACH OF PT.
--- NOTE | 2018-02-23 08:32 | NUR ---
REPOSITIONED PT IN HIS CHAIR, GOT HIM 2 WARM BLANKETS AND ALSO GAVE HIM A NEW WATER CUP. CALL LIGHT IN PLACE.
--- NOTE | 2018-02-23 10:13 | NUR ---
VEE PLACED UNDER PT'S BOTTOM PER DOC ORDER PT IS SITTING UP IN CHAIR.
--- NOTE | 2018-02-23 10:26 | NUR ---
MED REC COMPLETE
--- NOTE | 2018-02-23 11:00 | NUR ---
PT UP WALKING IN HW WITH PT WITH WALKER AND STANDBY ASSIST. PT TOLERATING WALK WELL.
--- NOTE | 2018-02-23 11:51 | NUR ---
PT SITTING IN CHAIR, BY HIS SIDE. BOTH PLEASANT, PT'S IS VERY AFFIRMING, AND TRYING TO BE POSITIVE IN REGARDS TO CHANGES COMING TO THEIR LIFE THEY HAVE KNOWN IT. FR NIELSON CAME IN, EXTENDED A BLESSING. WILL FOLLOW NEEDED
--- NOTE | 2018-02-23 11:52 | NUR ---
FAMILY AT BEDSIDE VISITING WITH PT. PT DENIES NEEDS AT THIS TIME. LUNCH ORDER TO BE PLACED BY FAMILY PER THEIR REQUEST. PERSONAL SUPPLIES AND CALL LIGHT WITHIN REACH OF PT.
--- NOTE | 2018-02-23 14:27 | NUR ---
PATIENT HAS FRUIT SITTING ON BEDSIDE TABLE FROM TODAY'S MEALS. HE ATE LUNCH WELL YESTERDAY. ON A 2 GRAM SODIUM DIET WITH 1800 ML FLUID RESTRICTION. I MENTIONED TO HIM AND HIS THAT I WANT HIM TO EAT WELL, JUST NOT HIGH SODIUM FOODS. WILL PROVIDE MORE EDUCATION IF APPROPRIATE UPON DISCHARGE.
--- NOTE | 2018-02-23 17:22 | NUR ---
SWING BED. IN CHAIR FOR MEALS; MUST HAVE DOUGHNUT UNDER BOTTOM WHILE IN CHAIR. PT DENIES PAIN. ON RA. SL WITH ABX. CARDIAC DIET WITH 1800ML FLUID RESTRICT. COCCYX RED. PIVOT TRANSFER TO BSC 2PA WITH WALKER. INCONT URINE AT TIMES. AFIB HX THIS ADMIT. PT/OT WORKING WITH PT.
--- NOTE | 2018-02-23 20:15 | NUR ---
PATIENT HAS C/O NAUSEA AND 6/10 LOW BACK PAIN. TYLENOL GIVEN PO AND 4MG SL/ZOFRAN GIVEN.
--- NOTE | 2018-02-23 21:00 | NUR ---
PATIENT'S BACKACHE DOWN TO 03/02 AND NAUSEA GONE. AMBULATED WITH THIS RN 1PA WITH FWW TO THE BATHROOM PATIENT THOUGHT HE WAS GOING TO HAVE A BM, BUT ONLY VOIDED. PATIENT BACK IN BED NOW, BED ALARM ON. HEAL PROTECTORS ON NAV WRAPS TO BOTH LOWER LEGS. PATIENT IN FOWLERS POSITION. PATIENT HAS CALL LIGHT AND PO FLUIDS IN REACH AND IS GOING TO TRY AND GET SOME SLEEP.
--- NOTE | 2018-02-23 21:23 | NUR ---
VITALS AND I&OS DONE AND CHARTED. BEDSIDE TABLE AND CALL LIGHT IN REACH. PT NEEDS NOTHING AT THIS TIME.
--- NOTE | 2018-02-23 23:00 | NUR ---
HELPED PT TO GET REPOSITIONED TO HIS COMFORT IN BED. BEDSIDE TABLE AND CALL LIGHT IN REACH.
--- NOTE | 2018-02-23 23:45 | NUR ---
PATIENT RESTING QUIETLY IN FOWLERS POSITION. EYES CLOSED RESPIRATIONS EVEN AND REGULAR. NO S/S OF DESTRESS. RESP RATE 16BPM.
--- NOTE | 2018-02-24 00:01 | NUR ---
HELPED PT WITH URINATING IN HIS URINAL. I EMPTIED, RINSED AND CHARTED AMOUNT. PT NEEDS NOTHING MORE AT THIS TIME. BEDSIDE TABLE AND CALL LIGHT IN REACH.
--- NOTE | 2018-02-24 02:11 | NUR ---
CHANGED PT'S ATTENDS INCONTINENT OF URINE. REPOSITIONED HIM TO HIS COMFORT. BEDSIDE TABLE AND CALL LIGHT IN REACH. PT NEEDS NOTHING MORE AT THIS TIME.
--- NOTE | 2018-02-24 04:09 | NUR ---
PATIENT JUST AMBULATED TO THE BATHROOM 1PA WITH THIS RN AND FWW, PATIENT THOUGHT HE NEEDED TO HAVE A BM, BUT ONLY URINATED. BACK TO BED WITH THE SAME METHOD. DAILY WEIGHT [id number]=184.1LBS. PATIENT HAS NO C/O PAIN AND IN FOWLERS POSITION ON HIS LEFT SIDE AT THIS TIME.
--- NOTE | 2018-02-24 06:10 | NUR ---
PATIENT HAS HAD NO MORE C/O BACKACHE OR NAUSEA SINCE TYLENOL AND MEDS AT THE BEGINING PART OF THE SHIFT. PATIENT HAS CALLED TO AMBULATE WITH FWW AND 1PSBA TO THE TOILET X2 THINKING HE NEEDED TO HAVE A BM, BUT ONLY HAD GAS. 1 EPISODE OF URINARY INCONTINENCE, THE REST OF THE TIME HE HAS BEEN ABLE TO USE THE TOILET OR URINAL. PATIENT IS CURRENTLY RESTING QUIETLY. EYES CLOSED RESPIRATIONS REGULAR AND EVEN.
--- NOTE | 2018-02-24 07:26 | NUR ---
PT SLEEPING IN BED AT THIS TIME, RESP EVEN AND NON LABORED. PT APPEARS WITHOUT DISCOMFORT. PER REPORT PT VOIDING Q/S. PERSONAL SUPPLIES AND CALL LIGHT WITHIN REACH.
--- NOTE | 2018-02-24 09:55 | NUR ---
PT SITTING UP IN CHAIR, RESP EVEN AND NON LABORED. PT DENIES PAIN AT THIS TIME. PT VOIDING Q/S. PERSONAL SUPPLIES WITHIN REACH OF PT.
--- NOTE | 2018-02-24 10:56 | NUR ---
PT UP AMBULATING IN KERR WITH P.T. VISITING WITH MOST ANYONE HE SEES HE IS UP. SAID IRON AND GAVE ENCOURAGEMENT. WILL FOLLOW NEEDED
--- NOTE | 2018-02-24 14:04 | NUR ---
PT HAS VISITOR AT THIS TIME. PT DENIES PAIN. PERSONAL SUPPLIES AND CALL LIGHT WITHIN REACH.
--- NOTE | 2018-02-24 16:37 | NUR ---
ELLEVYN DRESSING CHANGED TO COCCYX IT WAS PEELING OFF. SKIN APPEARS RED UNDER DRESSING, BLANCHABLE.
--- NOTE | 2018-02-24 17:33 | NUR ---
PT ON RA. DENIES PAIN. SWING BED. UP IN CHAIR FOR MEALS; DOUGHNUT UNDER BOTTOM WHEN IN CHAIR. SL WITH ABX. COCCYX RED; ALLYVN INTACT. CARDIAC DIET, 1800ML FLUIDS REST. 2PA TO BR WITH WALKER. WORKING WITH PT/OT.
--- NOTE | 2018-02-24 17:55 | NUR ---
PT IN BED EATING DINNER, SITTING UP. FAMILY AT BEDSIDE VISITING. PT DENIES NEEDS AT THIS TIME.
--- NOTE | 2018-02-24 20:00 | NUR ---
PATIENT'S WATER GLASSED FILLED, PATIENT HAVING NO PAIN AND SITTING IN BED WATCHING TV.
--- NOTE | 2018-02-24 21:39 | NUR ---
CHARGE NURSE ROUNDING NOTE: IN BED, CPAP AT BEDSIDE, DENIES ANY SOB OR PAIN VISITING WITH FAMILY
--- NOTE | 2018-02-24 22:00 | NUR ---
PM ASSESSMENT DONE AND PATIENT GOING TO TRY AND GET SOME SLEEP VS STABLE.
--- NOTE | 2018-02-25 00:10 | NUR ---
PATIENT REPOSITIONED TO HIS LEFT SIDE. PATIENT HAS BEEN RESTING QUIETLY, RESPIRATIONS REGULAR AND EVEN, NO COPLAINTS OF PAIN.
--- NOTE | 2018-02-25 02:05 | NUR ---
PATIENT REPOSITIONED TO HIS RIGHT SIDE. NO C/O PAIN AND RESPIRATIONS HAVE MENDY REGULAR AND EVEN.
--- NOTE | 2018-02-25 04:13 | NUR ---
PATIENT HAS BEEN RESTING, CALL LIGHT IN REACH. FRESH WATER GIVEN
--- NOTE | 2018-02-25 06:10 | NUR ---
PATIENT HAS RESTED MOST OF THE NIGHT. TURNED Q2 HOURS. PATIENT IS STILL RESTING QUIETLY EYES CLOSED RESPIRATIONS REGUALR AND EVEN. PATIENT HAS DENIED ANY PAIN THROUGH THE NIGHT AND SAYS HE HAS RESTED WELL.
--- NOTE | 2018-02-25 07:05 | NUR ---
BEDSIDE HANDOFF REPORT RECEIVED FROM PAPERHANGER APPRENTICE RN. PT SLEEPING, LEFT UNDISTURBED. BED ALARM IN PLACE.
--- NOTE | 2018-02-25 09:15 | NUR ---
PT SITTING IN CHAIR EATING BREAKFAST. PT TACHYCARDIC, HR 120, GIVEN SCHEDULED AMIODERONE, NOTIFIED, PLAN TO REASSESS HR IN 45 MIN. PT DENIES PAIN. PT ON ROOM AIR, LUNG SOUNDS CLEAR. DENIES CHEST PAIN/SOB. PT WITH GOOD APPETITE, TOLERATING DIET, BOWEL TONES ACTIVE. PT WITH EDEMA TO BILATERAL THIGHS, NAV WRAP TO LOWER LEGS, MINIMAL EDEMA TO LOWER LEGS, PULSE PALPABLE. IV INFUSING ABX. PT ORIENTED TO ALL BUT DATE. PT DENIES OTHER NEEDS AT THIS TIME. DISCUSSED PLAN OF CARE FOR THE DAY. CALL LIGHT WITHIN REACH.
--- NOTE | 2018-02-25 11:50 | NUR ---
PT SITTING IN CHAIR. PT COMPLAINT OF PAIN TO SCARUM, ASSESSED, BLACHANBLE REDNESS PRESENT, ALLEVYN APPLIED. PT REPOSITIONED IN CHAIR WITH DOUGHNUT CUSHION IN PLACE. PT DENIES OTHER NEEDS AT THIS TIME.
--- NOTE | 2018-02-25 13:01 | NUR ---
PER P.T. PT REFUSED P.T., NOT HAVING A GOOD DAY. PT SITTING IN CHAIR. PT EMOTIONAL, THERAPEUTIC COMMUNICATION PROVIDED. DISCUSSED WITH PT GOALS OF TEHRAPY TO INCREASE STRENGTH FOR DISCHARGE. PT AGREEABLE TO WALK LATER. PT DENIES OTHER NEEDS AT THIS TIME.
--- NOTE | 2018-02-25 14:00 | NUR ---
WHEN I WAS WALKING BY HIS ROOM THE PATIENT ASKED ME IF I COULD HELP HIM BECAUSE HE NEEDED TO GO TO THE BATHROOM. SO I GOT THE BEDSIDE COMMODE AND WAITED UNTIL HE WAS DONE THAN HELPED HIM BACK TO HIS CHAIR WITH WALKER. PUT UP HIS FEET.
--- NOTE | 2018-02-25 14:55 | NUR ---
PT ASSISTED TO AMBULATE TO BATHROOM, VOIDED WITHOUT DIFFICULTY. PT THEN SBA TO WALK IN KERR, COMPLETED ONE LAP AROUND NURSES STATION, ASSISTED TO BED. PT LYING ON LEFT SIDE TO RELEIVE PRESSURE ON SACRUM. PT DENIES OTHER NEEDS AT THIS TIME.
--- NOTE | 2018-02-25 16:30 | NUR ---
PT RESTING IN BED. PT STATES HE HAS RELIEF TO SACRAL PAIN AFTER LAYING ON HIS SIDE. PT DENIES OTHER NEEDS AT THIS TIME.
--- NOTE | 2018-02-25 17:30 | NUR ---
PT ASSISTED TO BATHROOM AND THEN TO CHAIR FOR DINNER. PT PROVIDED WITH FRESH WATER. PT DENIES OTHER NEEDS AT THIS TIME.
--- NOTE | 2018-02-25 17:47 | NUR ---
PT DID NOT FEEL WELL TODAY, REFUSED P.T., HOWEVER WALKED IN KERR WITH NURSING STAFF. PT WITH POOR APPETITE, DENIES NAUSEA, STATES HE DOES NOT LIKE THE FOOD, DRANK A MILK SHAKE BROUGHT IN BY , ENCOURAGE ORAL FLUIDS. REDNESS AND SORENESS TO SACRUM, ALLEVYN IN PLACE. TACHYCARDIC AT BEGINING OF SHIFT, RESPONDED TO SCHEDULED AMIODARONE. IV SALINE LOCKED, IV ABX DC'D. MINIMAL EDEMA TO LOWER LEGS, NAV WRAPS IN PLACE. MIRALAX BEGAN FOR CONSTIPATION, VOIDING QS.
--- NOTE | 2018-02-25 18:59 | NUR ---
BROUGHT HIM AN ICE CREAM. HE IS UP IN HIS CHAIR TALKING ON THE PHONE.
--- NOTE | 2018-02-25 19:15 | NUR ---
SHIFT REPORT RECEIVED. PATIENT SITTING IN RECLINER. DAY SHIFT RN ASSISTED PATIENT IN PLACING HIS DENTURES IN WATER FOR THE NIGHT. PATIENT DENIES OTHER NEEDS AT THIS TIME. CALL LIGHT IN REACH.
--- NOTE | 2018-02-25 22:00 | NUR ---
GREER GARZA AND MYSELF ASSISTED PATIENT UP TO [facility]. PATIENT TOLERATED WELL. PATIENT HAD VERY SMALL PEBBLE LIKE BOWEL MOVEMENT BUT REPORTS RELIEF OF SOME ABD PRESSURE. BARRIER CREAM APPLIED TO BUTTOCKS. PATIENT BACK TO BED. POSITIONED ON RIGHT SIDE. CALL LIGHT IN REACH.
--- NOTE | 2018-02-25 22:30 | NUR ---
EVENING MEDS GIVEN PER ORDER. PATIENT IS AAOX3. DENIES PAIN, REPORTS RELIEF FROM SORENESS TO HIS BACKSIDE WHILE LAYING ON HIS SIDE. REDNESS ON BILATERAL THIGHS HAS RECEEDED FROM THE MARKED OUTLINES. MODERATE EDMEA NOTED. ANV WRAPS APPLIED TO MEENA LOWER HALF OF LEGS, TRACE EDMEA NOTED HERE. WOUNDS COVERED BY WOUND CONSULT ORDERED DRESSINGS. LUNG SOUNDS ARE CLEAR. ABD IS FIRM, BOWEL SOUNDS ACTIVE, NONTENDER. CALL LIGHT IN REACH. PATIENT DENIES ANY NEEDS AT THIS TIME.
--- NOTE | 2018-02-25 23:45 | NUR ---
PATIENT UP TO THE BSC, HE HAD A SMALL BM. TROY CARE PERFORMED, BARRIER CREAM APPLIED. PATIENT ASSISTED BACK TO BED AND POSITIONED ON RIGHT SIDE PER REQUEST. CALL LIGHT IN REACH.
--- NOTE | 2018-02-25 23:45 | NUR ---
CHARGE NURSE ROUNDING NOTE, RESTING, EYES CLOSED, NO RESP DISTRESS,FALL PRECAUTIONS IN PLACE
--- NOTE | 2018-02-25 23:58 | NUR ---
V/S AND I&O DONE AND CHARTED. ASSISTED TO USE THE URINAL.
--- NOTE | 2018-02-26 00:01 | NUR ---
2 PA TO USE THE BEDSIDE COMMODE AND BACK TO BED USING WALKER. CALL LIGHT AND BEDSIDE TABLE ARE WITHIN REACH.
--- NOTE | 2018-02-26 00:30 | NUR ---
PATIENT REQUEST ASSISTANCE UP TO BSC. GREER GARZA ASSISTED PATIENT.
--- NOTE | 2018-02-26 02:00 | NUR ---
PATIENT REQUEST ASSISTANCE TO USE THE BATHROOM. GREER GARZA AND JONE ASSISTED PATIENT.
--- NOTE | 2018-02-26 04:28 | NUR ---
PATIENT APPEARS TO BE SLEEPING SOUNDLY. RR 18. CALL LIGHT IN REACH.
--- NOTE | 2018-02-26 05:53 | NUR ---
PATIENT SLEPT WELL THIS SHIFT. PATIENT HAD A MEDIUM BM EARLY THIS AM. URINE OUTPUT QS. 1-2PA W/FWW TO BSC. TURN Q2H TO KEEP OFF HIS BOTTOM. DONUT TO BE USED WHEN UP TO CHAIR. PATIENT REQUIRES REORIENTATION OCCATIONALLY. IV SL. CARDIAC DIET, FLUID RESTRICTION 1800. NEEDS ENCOURAGED ORAL INTAKE. NAV WRAPS FOR COMPRESSION ON LOWER EXTREMITIES. MODERATE EDEMA IN THIGHS, HAS IMPROVED.
--- NOTE | 2018-02-26 06:38 | NUR ---
ASSISTED PATIENT UP TO RECLINER. PLACED ON DONUT PILLOW WITH LEGS ELEVATED. WARM BLANKET PROVIDED BY KAYLA BUTTERFIELD. PATIENT REPORTS BEING COMFORTABLE. FRESH GOWN PROVIDED. CALL LIGHT IN REACH.
--- NOTE | 2018-02-26 08:00 | NUR ---
RECEIVED REPORT AT 0700, FOUND PT SITTING IN CHAIR SLEEPING. PT WOKE UP DURING REPORT. PT HAD NO NEEDS OR CONCERNS AT THAT TIME.
--- NOTE | 2018-02-26 10:00 | NUR ---
PT IS SITTING UP IN CHAIR. SLEEPING OFF AND ON. NO NEW CONCERNS AT THIS TIME.
--- NOTE | 2018-02-26 12:00 | NUR ---
PHYSICAL THERAPY IS IN ROOM WITH PT. IS AT BEDSIDE. PT SEEMS TO BE DOING WELL.
--- NOTE | 2018-02-26 15:19 | NUR ---
ANSWERED PATIENT'S CALL LIGHT HELPED HIM WALK TO THE BATHROOM WAITED UNTIL HE WAS DONE CHANGED HIM AND PUT HIM BACK TO BED. I ASKED ONE OF THE NUTRITION REPRESENTATIVE TO PLEASE BRING ME A WARM BLANKET. NOW HE TALKING ON HIS PHONE. WILL FIND OUT WHAT HE WANTS FOR DINNER AND CALL IT DOWN.
--- NOTE | 2018-02-26 17:00 | NUR ---
PT AT START OF SHIFT WAS QUIET TIRED. TOUGHOUT THE DAY PT STARTED TO BECOME MORE AWAKE AND ALSO STRONGER. PT AT THIS TIME IS A 1 PERSON ASSIST VS. 2 PERSONS AT START OF SHIFT. LOBES ARE CLEAR, V/S ARE WDL, BILATERAL LOWER LEG EDEMA HAS REMAINED UNCHANGED THOUGH THIS SHIFT SO FAR. PT HAD A BM THIS MORNING. PT WORKED WITH PHYSICAL THERAPY WELL. PO INTAKE COULD BE BETTER.OTHERWISE NO NEW CONCERNS NOTED SO FAR THIS SHIFT.
--- NOTE | 2018-02-26 19:00 | NUR ---
SHIFT REPORT RECIEVED. PATIENT IN HIS BED TALKING ON THE PHONE. DENIES ANY NEEDS. CALL LIGHT IN REACH.
--- NOTE | 2018-02-26 20:00 | NUR ---
PATIENT'S DAUGHTER IN LAW REQUEST ASSISTANCE IN TURNING PATIENT ONTO HIS RIGHT SIDE. PATIENT TURNED AND TWO PILLOWS PLACED UNDER HIS SIDE. REPORTS BEING COMFORTABLE. FAMILY REMAINS IN ROOM.
--- NOTE | 2018-02-26 21:45 | NUR ---
EVENING MEDS GIVEN PER ORDER. PATIENT APPEARED TO BE SLEEPING BUT WOKE ESILY TO VOICE. PATIENT IS AAOX4. DENIES PAIN. CURRENT TURNED TO RIGHT SIDE PER FAMILY REQUEST. WOUNDS ON RIGHT ARM AND MEENA FEET ARE COVERED. NAV WRAPS TO MEENA LOWER HALF OF LOWER EXTREMITIES. TRACE EDEMA IN THE LOWER LEGS, GENERALIZED EDEMA IN THIGHS. REDNESS GREATLY IMPROVED. PATIENT'S LUNG ARE CLEAR. ENCOURAGED COUGH AND DEEP BREATH. PATIENT DENIES TOILETING NEEDS, ATTENDS IN PLACE. CALL LIGHT IN HAND.
--- NOTE | 2018-02-26 23:33 | NUR ---
2 PA TO USE THE BED SIDE COMMODE USING HIS OWN WALKER AND BACK TO BED. V/S AND I&O DONE AND CHARTED. CALL LIGHT AND SIDE TABLE WITHIN REACH.
--- NOTE | 2018-02-27 00:45 | NUR ---
PATIENT REQUEST ASSISTANCE TO THE BATHROOM. 1PA W/FWW INTO THE BATHROOM. ENCOURAGED PATIENT TO BE INDEPENDENT POSSIBLE. HE WAS ABLE TO GET OUT OF BED AND AMBULATE WITHOUT ASSISTANCE. PATIENT DID NEED ASSISTANCE WITH HIS BREIF ONCE IN THE BATHROOM. PATIENT ABLE TO GET BACK INTO BED WITH MINIMAL ASSISTANCE AND TURNED HIMSELF TO LEFT SIDE. PILLOWS PLACED FOR COMFORT. CALL LIGHT IN REACH.
--- NOTE | 2018-02-27 03:28 | NUR ---
PATIENT'S LINEN BECAME WET AFTER PATIENT ATTEMPTS TO USE URNAL. GREER GARZA AND MYSELF ASSISTED PATIENT TO STAND NEXT TO THE BED WHILE LINENS WERE CHANGED. PATIENT RETURNED TO BED. TURNED HIMSELF TO RIGHT SIDE AND PILLOWS WERE PLACED. PATIENT REPORTS BEING COMFORTABLE. CALL LIGHT IN REACH.
--- NOTE | 2018-02-27 04:30 | NUR ---
PATIENT CALLED TO REQUEST ASSISTANCE SITTING UP. PATIENT STATES "I NEED TO GET UP AND FIGURE OUT WHAT I'M SUPPOSED TO BE DOING". ENCOURAGED PATIENT TO TURN OVER IN BED AND POSITIONED PILLOWS FOR COMFORT. PATIENT REPORTS FEELING COMFORTABLE. CALL LIGHT IN REACH.
--- NOTE | 2018-02-27 05:07 | NUR ---
PATIENT SLEPT ON AND OFF THROUGHOUT THE NIGHT. TURNED FREQUENTLY. PATIENT CONTINENT AT TIMES. CALLS APPROPRIATELY. 1 PA WITH FWW. STRENGTH IMPROVING. FORGETFUL AT TIMES. CARDIAC DIET WITH 1800 FLUID RESTRICTION, NEEDS ENCOURAGED WITH ORAL INTAKE. NAV WRAPS TO LOWER LEGS BILATERALLY. PATIENT HAS REPORTED SORE BOTTOM WHEN SITTING IN CHAIR, USE DONUT PILLOW.
--- NOTE | 2018-02-27 06:48 | NUR ---
ASSISTED PATIENT UP TO RECLINER. 1PA W/FWW. DRESSINGS ON RIGHT ARM CHANGED. SMALL ALYVEN PLACED. ON TWO SKIN TEARS. NAV WRAPS PLACED ON LOWER LEGS. PATIENT DENIES OTHER NEEDS. CALL LIGHT IN REACH. DONUT PILLOW IN RECLINER.
--- NOTE | 2018-02-27 07:45 | NUR ---
REPORT RECIEVED FROM MINGO MATHEW. PT AWAKE AND SITTING UP IN CHAIR. PLACED WARM BLANKETS AROUND SHOULDERS AND LEGS HE STATES HE IS ALWAYS COLD. NO IVF. LEGS NAV WRAPPED FROM KNEE DOWN FOR COMP. PT A\O
--- NOTE | 2018-02-27 12:18 | NUR ---
PT SITTING UP IN CHAIR. IN ROOM. ORDERED LUNCH.
--- NOTE | 2018-02-27 13:01 | NUR ---
PT SITTING IN CHAIR, PRAYER SHAWL AROUND HIS SHOULDERS. PT SEEMS VERY DISCOURAGED, ADMITTED SO. "[facility] ARE CLOSING IN". PT IS ALSO DEALING WITH THE LOSS OF INDEPENDENCE AND A CLOSE FRIEND THAT IS IN SIMILAR SITUATION. LET PT VENT, HAD SRAVANI AND FR NIELSON ARRIVED. WILL FOLLOW NEEDED
--- NOTE | 2018-02-27 15:19 | NUR ---
PT UP WALKING IN HALLS WITH CHAR BELT OPERATOR. TOLERATING WELL. PT A LITTLE TEARFUL THIS AFTERNOON. IN ROOM. SON, ELADIA JUST LEFT AFTER VISITING WITH HIM. PT DISAPPOINTED THAT HE HAS TO STAY A COPLE MORE DAYS.
--- NOTE | 2018-02-27 18:23 | NUR ---
PT UP IN CHAIR MOST OF DAY. AMBULATED TO RESTROOM AND IN KERR SEVERAL TIMES. ATE APPROX HALF OF MEALS. WANTED TO GO HOME TODAY BUT IT WILL BE A COUPLE MORE DAYS OF THERAPY.
--- NOTE | 2018-02-27 19:00 | NUR ---
SHIFT REPORT RECEIVED. PATIENT RESTING IN BED. HOB ELEVATED. CALL LIGHT IN REACH. PATIENT DENIES NEEDS.
--- NOTE | 2018-02-27 23:58 | NUR ---
PATIENT APPEARED TO BE SLEEPING SOUNDLY. WOKE EASILY TO VOICE. EVENING MEDS GIVEN PER ORDER. PATIENT IS ORIENTED X4. DENIES PAIN. LUNGS ARE CLEAR. ABD SOFT AND BOWEL SOUNDS ACTIVE. SKIN TEARS ON RIGHT ARM ARE COVERED, DRESSING CDI. REDNESS ON BILATERAL THIGHS IS MINIMAL. TRACE EDEMA NOTED ON BILATERAL LOWER LEGS, NAV WRAPS TIGHTENED. LEGS ELEAVTED. PATIENT TURNED SLIGHTLY TO RIGHT SIDE. URNAL IN REACH PER REQUEST. CALL LIGHT IN HAND. PATIENT DENIES OTHER NEEDS.
--- NOTE | 2018-02-28 00:10 | NUR ---
PATIENT APPEARS TO BE SLEEPING. CALL LIGHT IN REACH.
--- NOTE | 2018-02-28 02:00 | NUR ---
PATIENT REQUEST ASSISTANCE WITH THE URNAL. PEDIATRIC SOCIAL WORKER ASSISTED PATIENT.
--- NOTE | 2018-02-28 04:45 | NUR ---
PATIENT USED BATHROOM CALL LIGHT IN REQUEST ASSISTANCE. PATIENT HAD GOTTEN OUT OF BED INDEPENDENTLY WITHOUT CALLING AND USED THE BATHROOM. PATIENT REMINDED TO USE THE CALL LIGHT. PATIENT STATED "OH, I GUESS I DIDN'T". GREER GARZA ASSISTED PATIENT BACK INTO BED. BED ALARM ON.
--- NOTE | 2018-02-28 06:23 | NUR ---
ASSISTED PATIENT TO REPOSITION IN BED. PATIENT ABLE TO MOVE HIMSELF IN BED WITH INSTRUCTION.
--- NOTE | 2018-02-28 09:40 | NUR ---
PT IN SUPINE POSITION IN BED WAORKING WITH PHYSICAL THERAPY AT THIS TIME
--- NOTE | 2018-02-28 10:10 | NUR ---
PT HAS AMBULATED IN HALLS THIS AM WITH PHYSICAL THERAPY. HE USED NURSE CALL LIGHT TO REQUEST ASSSITANCE TO BATHROOM AT THIS TIME. STANDBY ASSIST. FLATUS POSITIVE.
--- NOTE | 2018-02-28 11:55 | NUR ---
PT SITTING IN CHAIR, P.T. IN FOR SESSION. HE JOKED AND SMILED MUCH MORE TODAY AND SAID HE WAS FEELING BETTER. WILL FOLLOW NEEDED
--- NOTE | 2018-02-28 14:10 | NUR ---
PT SITTING UP IN CHAIR, VISITING WITH HIS SISTER LACIE. PT HOPES TO BE DC'D TOMORROW, GOOD VISIT WITH BOTH. EXTENDED A BLESSING, WILL FOLLOW A NEEDED
--- NOTE | 2018-02-28 15:00 | NUR ---
PT UP AMBULATING WITH PHYSICAL THERAPY. TOELRATING ACTIVITY WELL STEADY GAIT STANDBY ASSIST. NO DISTRESS NOTED.
--- NOTE | 2018-02-28 18:16 | NUR ---
PT HAS BEEN VERY COOPERATIVE WITH STAFF TODAY, HE AMBUALTED TWICE WITH PHYICAL THERAPY IN HALLS TOLERATED ACTIVITY WELL WITH SBA FWW STEADY GAIT. HAS BEEN ALERT AND ORIENTED TODAY. HE REFUSES TO ALLOW STAFF TO HELP HIM SHOWER. HE HAS NOT BEEN INCONT TODAY. FLATUS POSITIVE.
--- NOTE | 2018-02-28 18:34 | NUR ---
INTO ASSESS PT AND DISCUSS PLAN FOR DISCHARGE TOMORROW. FAMILY AT BEDSIDE
--- NOTE | 2018-02-28 19:00 | NUR ---
SHIFT REPORT RECEIVED. PATIENT RESTING IN BED. DENIES NEEDS AT THIS TIME. CALL LIGHT IN REACH. REMINDED PATIENT TO USE CALL LIGHT FOR ANY NEEDS.
--- NOTE | 2018-02-28 21:00 | NUR ---
EVENING MEDICATIONS PROVIDED PER ORDER. PATIENT REPORTS DISCOMFORT FROM LAYING IN HIS BED. ASSISTED THE PATIENT TO REPOSITION AND PROVIDED PRN TYLENOL. PATIENT IS ORIENTED X4. SKIN TEARS ON RIGHT ARM COVERED. LUNGS ARE CLEAR. ABD SOFT. NO NAUSEA. GENERALIZED EDEMA NOTED IN UPPER THIGHS, TRACE EDEMA NOTED IN MEENA LOWER EXTREMITIES. NAV WRAPS IN PLACE. PATIENT DENIES NEEDS. CALL LIGHT IN REACH. BED ALARM ON.
--- NOTE | 2018-02-28 22:00 | NUR ---
PATIENT EXIT HIS BED WITHOUT ASSISTANCE. SINDY AGUILA ASSISTED PATIENT TO THE BATHROOM. NEW LINENS ON BED FOR SMALL AMOUNT OF INCONTINENCE. PATIENT BACK TO BED WITH BED ALARM ON. CALL LIGHT IN REACH. RECOURAGED PATIENT TO USE CALL LIGHT, HE AGREES.
[2018-02-28] MEDS ORDERED: FUROSEMIDE20 MG PO (22:08)
[2018-02-28] MEDS ORDERED: POTASSIUM CHLO10 MEQ PO (22:09)
[2018-02-28] MEDS ORDERED: VITAMIN D5000 UNIT PO (22:10)
[2018-02-28] MEDS ORDERED: LEVOTHYROXINE175 MCG PO (22:10)
[2018-02-28] MEDS ORDERED: OMEPRAZOLE20 MG PO (22:11)
--- NOTE | 2018-02-28 23:15 | NUR ---
PATIENT APPEARS TO BE SLEEPING. RR 18. CALL LIGHT IN REACH. BED ALARM ON.
--- NOTE | 2018-03-01 01:00 | NUR ---
PATIENT ASSISTED TO THE BATHROOM BY BEATRICE AGUILA
--- NOTE | 2018-03-01 02:45 | NUR ---
PATIENT REPORTS HE FEELS RESTLESS AND WANTS TO GET UP TO THE RECLINER. ORIENTED PATIENT TO THE TIME. PATIENT FEELS STIFF FROM SLEEPING IN THE BED AND WANTS TO "GET UP AND MOVE". TOOK PATIENT FOR A LARGE LAP AROUND THE UNIT. PATIENT AMBULTED WITH SBA W/FWW. TOLERATED WELL. PATIENT DENIES TOILETING NEEDS. BACK IN BED. TURNED ON LEFT SIDE AND PILLOWS PLACED FOR COMFORT. PATIENT DENIES FURTHER NEEDS. CALL LIGHT IN REACH.
--- NOTE | 2018-03-01 04:50 | NUR ---
PATIENT UP TO THE BATHROOM, HOSPITALITY RECRUITER ASSISTED. PATIENT BACK TO BED. THIS RN ASSISTED HOSPITALITY RECRUITER TO BOOST PATIENT UP IN BED AND POSITION HIM ON HIM SIDE. PATIENT REPORTS BEING COMFORTABLE. CALL LIGHT IN REACH.
--- NOTE | 2018-03-01 05:54 | NUR ---
PATIENT SLEPT ON AND OFF THROUGHOUT THE NIGHT. PATIENT REPORTS GENERALIZED SORENESS, TREATED WITH PRN TYLENOL AND REPOSITIONING. PATIENT AMBULATED IN HALLWAYS. 1PA W/FWW. WOUNDS ON RIGHT ARM CONVERED WITH ALYVENS. NAV WRAPS TO BILATERAL LOWER LEGS. EDEMA GREATLY IMPROVED. CARDIAC DIET WITH FLUID RESTRICTION, REQUIRES ENOCURAGEMENT TO MEET FLUID RESTRICTION. DAILY WT.
--- NOTE | 2018-03-01 07:33 | NUR ---
PT WAS TAKEN TO BATHROOM AND TO THE CHAIR BY GREER GARZA. PT STATES HE HAS NO NEEDS AT THIS TIME. WATER AND CALL LIGHT IN REACH. INFORMED PT TO CALL IF HE NEEDS ANYTHING.
--- NOTE | 2018-03-01 07:36 | NUR ---
PT SLEEPING IN BED AT THIS, RESP EVEN AND NON LABORED. PT IS ON RA. PERSONAL SUPPLIES AND CALL LIGHT WIHIN REACH.
--- NOTE | 2018-03-01 11:37 | NUR ---
PT SITTING UP IN CHAIR AT THIS TIME. PT DENIES PAIN. PT STATES HE IS "READY TO GO HOME". PROVIDER TO SEE PT TODAY. ANTICIPATE DISCHARGE HOME TODAY WITH PT'S . PT DENIES NEED TO VOID. PERSONAL SUPPLIES AND CALL LIGHT WITHIN REACH. NO NEEDS AT THIS TIME.
--- NOTE | 2018-03-01 13:38 | NUR ---
VISITED WITH PT'S RAVI IN [place]. SHARED WITH HER THAT I FELT IT IS IMPORTANT FOR US TO LET HIM GRIEVE THE LOSS OF HIS INDEPENDENCE-THAT'S WHAT I BELIEVE HE DID WITH ME EARLIER IN THE WEEK. SHE AGREED AND FELT THIS TIME HERE HAS BROUGHT THE REALIZATION HOME TO HER AND PT. SHE EXPRESSED HER APPRECIATION TO STAFF FOR THE CARE AND COMPASSION. HAD PRAYER WITH HER AN D ESCORTED HER TO PT'S RM. WILL FOLLOW NEEDED
--- NOTE | 2018-03-01 16:43 | NUR ---
FAXED SIGNITURE SHEET TO [facility] AT [facility] REQUESTED, RECIEVED A FAX CONFIRMATION OF THIS.
== END 2018-03-01 13:50 | disposition home health service (06) | DRG 603 ==
LOC: MS 11:30
PROVIDERS: ADMIT Internal Medicine
DX: L03.116 Cellulitis of left lower limb (principal); I13.0 Hypertensive heart and chronic kidney disease with heart failure and stage 1 through stage 4 chronic kidney disease, or unspecified chronic kidney disease; L03.115 Cellulitis of right lower limb; R53.1 Weakness; F03.90 Unspecified dementia, unspecified severity, without behavioral disturbance, psychotic disturbance, mood disturbance, and anxiety; E11.22 Type 2 diabetes mellitus with diabetic chronic kidney disease; N18.3 Chronic kidney disease, stage 3 (moderate); I50.9 Heart failure, unspecified; E78.5 Hyperlipidemia, unspecified; E03.9 Hypothyroidism, unspecified; M54.5 Low back pain; G47.30 Sleep apnea, unspecified; K21.9 Gastro-esophageal reflux disease without esophagitis; R54 Age-related physical debility; L98.499 Non-pressure chronic ulcer of skin of other sites with unspecified severity; L30.9 Dermatitis, unspecified; I87.2 Venous insufficiency (chronic) (peripheral); I87.8 Other specified disorders of veins; I48.2 Chronic atrial fibrillation; I89.0 Lymphedema, not elsewhere classified; Z85.46 Personal history of malignant neoplasm of prostate; Z79.01 Long term (current) use of anticoagulants; Z79.899 Other long term (current) drug therapy
CPT/HCPCS: 36415; 80048; 83735; 84100; 85025; 97110; 97112; 97116; 97140; 97162; 97166; 97530; 97535; G8978; G8979; J0692; J3475; J7060

== ENCOUNTER 2018-06-25 12:14 | Inpatient (IN) | payer MEDICARE, OTHER ==
[~2018-06-25] VITALS: Ht 180.3 cm; Wt 76.0 kg
--- OUTSIDE RECORDS SUMMARY | ~2018-06-25 | XMS | Clinical Summary ---
Demographics + + + | Address | [address] | | | [place] [address] | + + + | Home Phone | | + + + | Preferred Language | Unknown | + + + | Marital Status | | + + + | Islam Affiliation | Unknown | + + + | Race | White | + + + | Ethnic Group | Not or | + + + Author + + + | Author | [facility] | + + + | Organization | [facility] | + + + | Address | Unknown | + + + | Phone | Unavailable | + + + Care Team Providers + +------+ + | Care Hydrate Thickener Operator Name | Role | Phone | + +------+ + PP | Unavailable | + +------+ + Source Comments [facility] is [facility] live [facility]ly [facility] Allergies Not on File Current Medications Not on file Active Problems Not on file Social History + +-------+ +--------+------+ | Tobacco Use | Types | Packs/Day | Years | Date | | | | | Used | | + +-------+ +--------+------+ | Never Assessed | | | | | + +-------+ +--------+------+ + + + | Sex Assigned at | Date Recorded | | | | + + + | Not on file | | + + + Plan of Treatment Not on file Results Not on filefrom Last 3 Months Insurance + +--------+ +--------+ + + | Payer | Benefi | Subscriber | Type | Phone | Address | | | t Plan | ID | | | | | | / | | | | | | | Group | | | | | + +--------+ +--------+ + + | MEDICARE | MEDICA | xxxxxxxxxx | Medica | [phone] [address] | | | RE A & | | re | [phone] | [place] [address] | | | B | | | | | + +--------+ +--------+ + + | COMMERCIAL HMO/PPO | COMMER | [id number] | Indemn | | | | | CIAL | | ity | | | | | HMO/PP | | | | | | | O | | | | | + +--------+ +--------+ + + + +--------+ +--------+ + + | Guarantor Name | Accoun | Relation to | Date | Phone | Billing Address | | | t Type | Patient | of | | | | | | | | | | + +--------+ +--------+ + + | ELISABETH MONTILLA | Person | Self [birth year] | Home: | [address] | | | al/Fam | | 1931 | [phone] | [place] [address] | | | javier | | | [phone] | | + +--------+ +--------+ + +"
--- OUTSIDE RECORDS SUMMARY | ~2018-06-25 | XMS | Clinical Summary ---
Demographics + + + | Address | [address] [place] [address] | | | [place] [address] | + + + | Home Phone | | + + + | Preferred Language | Unknown | + + + | Marital Status | | + + + | Mandaen Affiliation | 1041 | + + + | Race | Unknown | + + + | Ethnic Group | Unknown | + + + Author + + + | Author | [facility] | | | and [place] | + + + | Organization | [facility] | | | and [place] | + + + | Address | Unknown | + + + | Phone | Unavailable | + + + Support + + + + + | Name | Relationship | Address | Phone | + + + + + | Steven,Lorraine | ECON | [address] | | | | | [place] | | | | | [address] | | + + + + + | Mulugeta Harris | ECON | [address] | | | | | [place] | | | | | [address] | | + + + + + Care Team Providers + +------+ + | Care State Farm Agent Name | Role | Phone | + +------+ + | Chris Gonzalez MD | PP | | + +------+ + Allergies + + + + + + | Active Allergy | Reactions | Severity | Noted | Comments | | | | | Date | | + + + + + + | Lisinopril | | | 06/09/19 | Cough | | | | | 13 | | + + + + + + Medications + + + +---------+------+------+-------+ | Medication | Sig | Dispensed | Refills | Star | End | Statu | | | | | | t | Date | s | | | | | | Date | | | + + + +---------+------+------+-------+ | Cholecalciferol | Take 5,000 Units by | | 0 | | | Activ | | (VITAMIN D3) 5000 | mouth. Take 1 tablet | | | | | e | | UNITS CAPS | every 3rd day | | | | | | + + + +---------+------+------+-------+ | levothyroxine | Take 175 mcg by | | 0 | | | Activ | | (SYNTHROID, | mouth every morning | | | | | e | | LEVOTHROID) 175 MCG | (before breakfast). | | | | | | | tablet | | | | | | | + + + +---------+------+------+-------+ | aspirin 81 MG | Take 81 mg by mouth | | 0 | | | Activ | | tablet | Daily. | | | | | e | + + + +---------+------+------+-------+ | atenolol | Take 25 mg by mouth | | 0 | | | Activ | | (TENORMIN) 25 mg | Daily. | | | | | e | | tablet | | | | | | | + + + +---------+------+------+-------+ | furosemide (LASIX) | Take 20 mg by mouth | | 0 | | | Activ | | 20 mg tablet | Daily. | | | | | e | + + + +---------+------+------+-------+ | triamcinolone | Apply topically 2 | | 0 | | | Activ | | (KENALOG) 0.1% cream | times daily. | | | | | e | + + + +---------+------+------+-------+ | Respiratory | Please send a CPAP | 1 each | 0 | 05/0 | | Activ | | Therapy Supplies | download. Send an | | | 2/20 | | e | | MISCIndications: RITA | order to In Home | | | 13 | | | | on CPAP | Medical. | | | | | | + + + +---------+------+------+-------+ | | Take 1 tablet by | | 0 | | | Activ | | HYDROcodone-acetamin | mouth every 6 hours | | | | | e | | ophen (NORCO) 5-325 | as needed. | | | | | | | mg per tablet | | | | | | | + + + +---------+------+------+-------+ | flunisolide | 2 sprays by Nasal | 1 | 0 | 11/0 | | Activ | | (NASALIDE) 25 | route Daily. | Bottle | | 7/20 | | e | | MCG/ACT (0.025%) | | | | 13 | | | | SOLN | | | | | | | + + + +---------+------+------+-------+ | omeprazole | Take 1 capsule by | 30 | 11 | 11/0 | | Activ | | (PRILOSEC) 20 mg | mouth 2 times daily. | capsule | | 7/20 | | e | | capsule | | | | 13 | | | + + + +---------+------+------+-------+ | Respiratory | Increase Max CPAP | 1 each | 0 | 02/2 | | Activ | | Therapy Supplies | pressure to 15 cm | | | 7/20 | | e | | MISCIndications: | H2O. Pt has been | | | 14 | | | | Obstructive sleep | using 9-13 cm. | | | | | | | apnea (adult) | Lifetime. Dx: 327.23 | | | | | | | (pediatric) | | | | | | | + + + +---------+------+------+-------+ Active Problems + + + | Problem | Noted Date | + + + | Basal cell carcinoma | 09/26/2013 | + + + | UIP (usual interstitial pneumonitis) | 12/28/2012 | + + + | Chronic rhinitis | 12/28/2012 | + + + | RITA on CPAP | 06/22/2012 | + + + | Hypertension | 06/08/2012 | + + + | Hypothyroidism | 06/08/2012 | + + + | Diabetes mellitus, type 2 | 06/08/2012 | + + + | Peripheral neuropathy | 06/08/2012 | + + + | Prostate cancer | 06/08/2012 | + + + | GERD (gastroesophageal reflux disease) | 06/08/2012 | + + + Resolved Problems + + + + | Problem | Noted | Resolved | | | Date | Date | + + + + | CHF (congestive heart failure) | 06/09/19 | | | | 13 | 3 | + + + + Immunizations + + + + | Name | Dates Previously Given | Next Due | + + + + | INFLUENZA PF 18 Y OR | 12/22/2012, 10/23/2011 | | | >,TRIVALENT | | | | RECOMBINANT | | | + + + + Family History + + +------+ + | Medical History | Relation | Name | Comments | + + +------+ + | Colon cancer | Father | | | + + +------+ + | Stroke | Maternal | | | | | Aunt | | | + + +------+ + | Cancer | Mother | | | + + +------+ + | Stroke | Mother | | | + + +------+ + + +------+ + + | Relation | Name | Status | Comments | + +------+ + + | Father | | | colon cancer | | | | (Age | | | | | 45) | | + +------+ + + | Maternal Aunt | | | | + +------+ + + | Mother | | | | | | | (Age | | | | | 72) | | + +------+ + + | Sister | | Alive | | + +------+ + + Social History + +-------+ +--------+------+ | Tobacco Use | Types | Packs/Day | Years | Date | | | | | Used | | + +-------+ +--------+------+ | Never Smoker | | | | | + +-------+ +--------+------+ + +---+---+---+ | Smokeless Tobacco: | | | | | Never Used | | | | + +---+---+---+ + + +---------+ + | Alcohol Use | Drinks/We | oz/Week | Comments | | | ek | | | + + +---------+ + | No | | | | + + +---------+ + + + + | Sex Assigned at | Date Recorded | | | | + + + | Not on file | | + + + + + + + | Job Start Date | Occupation | Industry | + + + + | Not on file | Not on file | Not on file | + + + + + + + + | Travel History | Travel Start | Travel End | + + + + + + | No recent travel history available. | + + Last Filed Vital Signs + + + + | Vital Sign | Reading | Time Taken | + + + + | Blood Pressure | 134/68 | 09/26/20131104 PDT | + + + + | Pulse | 60 | 09/26/20131104 PDT | + + + + | Temperature | 35.5 C (95.9 F) | 06/22/20121337 PDT | + + + + | Respiratory Rate | - | - | + + + + | Oxygen Saturation | 98% | 09/26/20131104 PDT | + + + + | Inhaled Oxygen | - | - | | Concentration | | | + + + + | Weight | 109.5 kg (241 lb 8 | 09/26/20131104 PDT | | | oz) | | + + + + | Height | 177.8 cm (5' 10") | 09/26/20131104 PDT | + + + + | Body Mass Index | 34.65 | 09/26/20131104 PDT | + + + + Plan of Treatment + + + + + | Health Maintenance | Due Date | Last Done | Comments | + + + + + | Vaccine: | | | | | Dtap/Tdap/Td (1 - | 8 | | | | Tdap) | | | | + + + + + | Vaccine: Zoster (1 | | | | | of 2) | 9 | | | + + + + + | Vaccine: | | | | | Pneumococcal 65+ | 4 | | | | Low/Medium Risk (1 | | | | | of 2 - PCV13) | | | | + + + + + | Vaccine: Influenza | | 12/22/2012, 10/23/2011 | | | (Season Ended) | 9 | | | + + + + + Results Not on filefrom Last 3 Months Insurance + +--------+ +--------+ +---------+--------+ | Payer | Benefi | Subscriber | Effect | Phone | Address | Type | | | t Plan | ID | jacques | | | | | | / | | Dates | | | | | | Group | | | | | | + +--------+ +--------+ +---------+--------+ | MEDICARE | MEDICA | [id number] | 07/22/18 | [phone] | | Medica | | | RE | | 94-Pre | 5 | | re | | | PART A | | sent | | | | | | AND B | | | | | | + +--------+ +--------+ +---------+--------+ | EQUITABLE INSURANCE | EQUITA | [id number] | 02/11/ | [phone] | | Indemn | | | BLE | | 1994-P | 0 | | ity | | | INS | | resent | | | | | | MDCR | | | | | | | | SUPPL | | | | | | + +--------+ +--------+ +---------+--------+ + +--------+ +--------+ + + | Guarantor Name | Accoun | Relation to | Date | Phone | Billing Address | | | t Type | Patient | of | | | | | | | | | | + +--------+ +--------+ + + | Mulugeta Harris | Person | Self [birth year] | [address] | | | al/Fam | | 1931 | [phone] | [place], | | | [place] | | | [address] ([place]) | [place] [address] | + +--------+ +--------+ + + Advance Directives Patient has advance care planning documents on file. For more information, please contact:[facility] [place] [address]
--- OUTSIDE RECORDS SUMMARY | ~2018-06-25 | XMS | Clinical Summary ---
Demographics + + + | Address | [address] | | | [place] [address] | + + + | Home Phone | | + + + | Preferred Language | Unknown | + + + | Marital Status | | + + + | Mormonism Affiliation | Unknown | + + + | Race | Unknown | + + + | Ethnic Group | Unknown | + + + Author + + + | Author | [facility] | + + + | Organization | [facility] | + + + | Address | Unknown | + + + | Phone | Unavailable | + + + Support + + +---------+ + | Name | Relationship | Address | Phone | + + +---------+ + | Thelma,Detailed | ECON | Unknown | | + + +---------+ + | Elisabeth Montilla Md | ECON | Unknown | | + + +---------+ + | Neel Montilla Md | ECON | Unknown | | + + +---------+ + | Lorraine Montilla | ECON | Unknown | | + + +---------+ + Care Team Providers + +------+ + | Care Superintendent Menagerie Name | Role | Phone | + +------+ + PP | Unavailable | + +------+ + Allergies + + + + + + | Active Allergy | Reactions | Severity | Noted | Comments | | | | | Date | | + + + + + + | Lisinopril | Cough | Low | 02/19/20 | Cough | | | | | 16 | | + + + + + + | Shellfish-Derived | Nausea and Vomiting | Low | 02/19/20 | "Lobster only" | | Products | | | 16 | | + + + + + + Current Medications + + +-------+---------+------+------+-------+ | Prescription | Sig. | Disp. | Refills | Star | End | Statu | | | | | | t | Date | s | | | | | | Date | | | + + +-------+---------+------+------+-------+ | diltiazem | Take 120 mg by mouth | | | | | Activ | | (CARDIZEM) 120 MG | daily. | | | | | e | | tablet | | | | | | | + + +-------+---------+------+------+-------+ | torsemide | Take 10 mg by mouth | | | | | Activ | | (DEMADEX) 10 MG | daily. | | | | | e | | tablet | | | | | | | + + +-------+---------+------+------+-------+ | amiodarone | Take 200 mg by mouth | | | | | Activ | | (PACERONE) 200 MG | daily. | | | | | e | | tablet | | | | | | | + + +-------+---------+------+------+-------+ | loteprednol | Apply 1 drop to eye | | | | | Activ | | (ALREX) 0.2 % | 4 (four) times | | | | | e | | ophthalmic | daily. | | | | | | | suspension | | | | | | | + + +-------+---------+------+------+-------+ | Hydroquinone 4 % | Apply topically. | | | | | Activ | | EMUL | | | | | | e | + + +-------+---------+------+------+-------+ | triamcinolone | Apply topically 2 | | | | | Activ | | (KENALOG) 0.1 % | (two) times daily. | | | | | e | | cream | | | | | | | + + +-------+---------+------+------+-------+ | dabigatran | Take 75 mg by mouth | | | | | Activ | | (PRADAXA) 75 MG CAPS | 2 (two) times daily. | | | | | e | | capsule | | | | | | | + + +-------+---------+------+------+-------+ | levothyroxine | Take 200 mcg by | | | | | Activ | | (SYNTHROID) 200 MCG | mouth every morning | | | | | e | | tablet | before breakfast. | | | | | | + + +-------+---------+------+------+-------+ | Magnesium 250 MG | Take 250 mg by mouth | | | | | Activ | | TABS tablet | daily. | | | | | e | + + +-------+---------+------+------+-------+ | doxycycline | Take 100 mg by mouth | | | | | Activ | | (VIBRA-TABS) 100 MG | 2 (two) times | | | | | e | | tablet | daily. | | | | | | + + +-------+---------+------+------+-------+ Active Problems Not on file Family History + + +------+ + | Medical History | Relation | Name | Comments | + + +------+ + | Diabetes type II | Father | | | + + +------+ + | Stroke | Mother | | | + + +------+ + + +------+ + + | Relation | Name | Status | Comments | + +------+ + + | Father | | | | + +------+ + + | Mother | | | | + +------+ + + Social [...] on file | | + + + Last Filed Vital Signs + + + + | Vital Sign | Reading | Time Taken | + + + + | Blood Pressure | 102/66 | 05/13/2016 1:31 PM PDT | + + + + | Pulse | 78 | 05/13/2016 1:31 PM PDT | + + + + | Temperature | 36.8 C (98.3 F) | 02/19/2016 1:42 PM PST | + + + + | Respiratory Rate | 16 | 02/19/2016 1:42 PM PST | + + + + | Oxygen Saturation | 98% | 05/13/2016 1:31 PM PDT | + + + + | Inhaled Oxygen | - | - | | Concentration | | | + + + + | Weight | 95.7 kg (211 lb) | 05/13/2016 1:31 PM PDT | + + + + | Height | 180.3 cm (5' 11") | 02/19/2016 1:42 PM PST | + + + + | Body Mass Index | 29.43 | 05/13/2016 1:31 PM PDT | + + + + Plan of Treatment +--------+---------+ + + + | Date | Type | Specialty | Care Team | Description | +--------+---------+ + + + | 09/06/ | Office | | Lucie Sheikh, | | | 2019 | Visit | | MD Raul Villanueva | | | | | | Dr [address], | | | | | | [place] [address] | | | | | | [phone] | | | | | | | | +--------+---------+ + + + + + + + + | Health [...] filefrom Last 3 Months Insurance + +--------+ +------+-------+ + | Payer | Benefi | Subscriber | Type | Phone | Address | | | t Plan | ID | | | | | | / | | | | | | | Group | | | | | + +--------+ +------+-------+ + | MEDICARE | MEDICA | [id number] | | | [address] | | | RE | | | | [place] [phone] | | | IP-OP | | | | | + +--------+ +------+-------+ + | COMMERCIAL OTHER | COMMER | [id number] | | | | | | CIAL | | | | | | | GENERI | | | | | | | C PLAN | | | | | + +--------+ +------+-------+ + + +--------+ +--------+ + + | Guarantor Name | Accoun | Relation to | Date | Phone | Billing Address | | | t Type | Patient | of | | | | | | | | | | + +--------+ +--------+ + + | ELISABETH MONTILLA | Person | Self [birth year] | Home: | [address] | | | al/Fam | | 1931 | [phone] [place] | | | [place] | | | [phone] | + +--------+ +--------+ + +
--- OUTSIDE RECORDS SUMMARY | ~2018-06-25 | XMS | Clinical Summary ---
Demographics + + + | Address | [address] [place] [address] | | | [place] [address] | + + + | Home Phone | | + + + | Preferred Language | Unknown | + + + | Marital Status | | + + + | Samaritan Affiliation | 1041 | + + + | Race | Unknown | + + + | Ethnic Group | Unknown | + + + Author + + + | Author | [facility] | | | and [place] | + + + | Organization | [facility] | | | and [...] [place] | | | | | [address] | | + + + + + | Mulugeta Harris | ECON | [address] | | | | | [place] | | | | | [address] | | + + + + + Care Team Providers + +------+ + | Care Gate Cutter Name | Role | Phone | + [...] +--------+ +---------+--------+ | MEDICARE | MEDICA | [id number] | 07/22/18 | [phone] | | Medica | | | RE | | 94-Pre | 5 | | re | | | PART A | | sent | | | | | | AND B | | | | | | + +--------+ +--------+ +---------+--------+ | EQUITABLE INSURANCE | EQUITA | [id number] | 02/11/ | [phone] | | Indemn [...] | | al/Fam | | 1931 | [phone] | PAWAN GONZALEZ, | | | javier | | | [address] ([place]) | [place] [address] | + +--------+ +--------+ + + Advance Directives Patient has advance care planning documents on file. For more information, please contact:[facility] [place] [address]
--- OUTSIDE RECORDS SUMMARY | ~2018-06-25 | XMS | Clinical Summary ---
Demographics + + + | Address | [address] [facility] [facility] [address] [facility] | | | [place] [address] | + + + | Home Phone | | + + + | Preferred Language | Unknown | + + + | Marital Status | | + + + | Alevism Affiliation | Unknown | + + + | Race | White | + + + | Ethnic Group | Not or | + + + Author + + + | Author | [facility] | + + + | Organization | [facility] | + + + | Address | Unknown | + + + | Phone | Unavailable | + + + Care Team Providers + +------+ + | Care Farm Operations Technical Director Name | Role | Phone | + +------+ + PP | Unavailable | + +------+ + Source Comments BASHIR is fully live on both [facility] and [facility] InPatient.[facility] Allergies Not on File Current Medications Not [...] | MEDICA | xxxxxxxxxx | Medica | [phone] | [address] | | | RE A & | | re | [phone] | [place] [address] | | | B | | | [...] | 1931 | [phone] | [place] [address] | | | javier | | | [phone] | | + +--------+ +--------+ + +"
--- OUTSIDE RECORDS SUMMARY | ~2018-06-25 | XMS | Clinical Summary ---
Demographics + + + | Address | [address] | | | [place] [address] | + + + | Home Phone | | + + + | Preferred Language | Unknown | + + + | Marital Status | | + + + | Uatsdin Affiliation | Unknown | + + + | Race | Unknown | + + + | Ethnic Group | Unknown | + + + Author + + + | Author | [facility] [employer] [employer] | + + + | Organization | [facility] [employer] [facility] [facility] | + + + | Address [...] Team Providers + +------+ + | Care Oil Heaterman Name | Role | Phone | + [...] | | | | | | [place] [address] | | | | | | [phone] | | | | | | | [...] +------+-------+ + | MEDICARE | MEDICA | [id number] | | | [address] | | | RE | | | | [place] [phone] | | | IP-OP | | | | | + +--------+ +------+-------+ + | COMMERCIAL OTHER | COMMER | [id number] | | | | | | CIAL [...] Self | [birth year] | Home: | [address] [facility] | | | al/Fam | | 1931 | [phone] | [place] | | | [place] | | | [phone] | + +--------+ +--------+ + +
--- OUTSIDE RECORDS SUMMARY | ~2018-06-25 | XMS | Clinical Summary ---
Demographics + + + | Address | [address] [place] [address] | | | [place] [address] | + + + | Home Phone | | + + + | Preferred Language | Unknown | + + + | Marital Status | | + + + | Cheondoism Affiliation | 1041 | + + + | Race | Unknown | + + + | Ethnic Group | Unknown | + + + Author + + + | Author | [facility] | | | and [place] | + + + | Organization | [facility] | | | and [...] [place] | | | | | [phone] | | + + + + + | Mulugeta Harris | ECON | [address] | | | | | [place] | | | | | [address] | | + + + + + Care Team Providers + +------+ + | Care Liquor Tester Name | Role | Phone | + [...] +--------+ +---------+--------+ | MEDICARE | MEDICA | [id number] | 07/22/18 | [phone] | | Medica | | | RE | | 94-Pre | 5 | | re | | | PART A | | sent | | | | | | AND B | | | | | | + +--------+ +--------+ +---------+--------+ | EQUITABLE INSURANCE | EQUITA | [id number] | 02/11/ | [phone] | | Indemn [...] | | al/Fam | | 1931 | [phone] | [place], | | | [place] | | | [address] ([place]) | [place] [address] | + +--------+ +--------+ + + Advance Directives Patient has advance care planning documents on file. For more information, please contact:[facility] [place] [address]
--- OUTSIDE RECORDS SUMMARY | ~2018-06-25 | XMS | Clinical Summary ---
Demographics + + + | Address | [address] [facility] | | | [place] [address] | + + + | Home Phone | | + + + | Preferred Language | Unknown | + + + | Marital Status | | + + + | Episcopalian Affiliation | Unknown | + + + | Race | Unknown | + + + | Ethnic Group | Unknown | + + + Author + + + | Author | [facility] [facility] | + + + | Organization | [facility] | + + + | Address [...] Team Providers + +------+ + | Care Substation Inspector Name | Role | Phone | + [...] | | | | | | [place] [address] | | | | | | [phone] | | | | | | | [...] +------+-------+ + | MEDICARE | MEDICA | [id number] | | | [address] | | | RE | | | | [place] [phone] | | | IP-OP | | | | | + +--------+ +------+-------+ + | COMMERCIAL OTHER | COMMER | [id number] | | | | | | CIAL [...] Self | [birth year] | Home: | [address] [facility] | | | al/Fam | | 1931 | [phone] | [place] | | | [place] | | | [phone] | + +--------+ +--------+ + +
--- OUTSIDE RECORDS SUMMARY | ~2018-06-25 | XMS | Clinical Summary ---
Demographics + + + | Address | [address] [facility] | | | [place] [address] | + + + | Home Phone | | + + + | Preferred Language | Unknown | + + + | Marital Status | | + + + | Taoist Affiliation | Unknown | + + + | Race | White | + + + | Ethnic Group | Not or | + + + Author + + + | Author | [facility] | + + + | Organization | [facility] | + + + | Address | Unknown | + + + | Phone | Unavailable | + + + Care Team Providers + +------+ + | Care Family Centered Specialist Name | Role | Phone | + +------+ + PP | Unavailable | + +------+ + Source Comments BASHIR is fully live on both [facility] and [facility] InPatient.[facility] Allergies Not on File Current Medications Not [...] | MEDICA | xxxxxxxxxx | Medica | [phone] | [address] | | | RE A & | | re | [phone] | [place] [address] | | | B | | | [...] | 1931 | [phone] | [place] [address] | | | javier | | | [phone] | | + +--------+ +--------+ + +"
[~2018-06-25 12:14] MED LIST changes: +FUROSEMIDE20 MG PO; +LEVOTHYROXINE175 MCG PO; +OMEPRAZOLE20 MG PO; +POTASSIUM CHLO10 MEQ PO; +VITAMIN D5000 UNIT PO
--- NOTE | 2018-06-25 15:37 | NUR ---
PT HERE TO ROOM 129 FROM ER. PT REQUIRES FULL ASSISTANCE TO TRANSFER FROM RGL[place]ANA TO BED. PT DENIES PAIN, NAUSEA, AND SOB AT THIS TIME. VITALS WNL. PT ALERT AND ORIENTED X4, HOWEVER APPEARS TO HAVE A FLAT AFFECT. PT REPORTS FEELING "BETTER" NOW THAN HE DID EARLIER TODAY. PT COOPERATIVE AND POLITE. SPOUSE IS AT THE BEDSIDE. IV SITE INTACT, NO REDNESS OR SWELLING NOTED, FLUIDS INFUSING EASILY, PT DENIES PAIN AT THE SITE.
--- NOTE | 2018-06-25 16:30 | NUR ---
PT TWO PERSON ASSIST UP TO BSC. PT ABLE TO VOID INTO URINAL. NOT ABLE TO HAVE A BM. PT STATES "I GUESS IT WAS A FALSE ALARM". TWO PERSON ASSIST BACK TO BED.
--- NOTE | 2018-06-25 17:19 | NUR ---
PT SITTING UP IN BED EATING CLEAR LIQUID DINNER. PT IS WATCHING BASKETBALL GAME ON TV. CALL LIGHT IS WITHIN REACH.
--- NOTE | 2018-06-25 17:26 | EKG ---
[facility] [address] [place] [address] Signed Sinus rhythm with 1st degree AV block with occasional premature ventricular complexes Right bundle branch block Possible Lateral infarct , age undetermined , similar to prior EKG Inferior infarct , age undetermined , similar to prior EKG Abnormal ECG When compared with ECG of 17-FEB-2018 08:15, Sinus rhythm has replaced Wide QRS tachycardia Vent. rate has decreased BY 78 BPM Confirmed by KENNY LYNN MD ([id number]) on 06/25/2018 5:26:00 PM Electronically Signed By: EKNNY LYNN MD 06/25/18 1726 PATIENT NAME: ELISABETH MONTILLA Electrocardiogram DATE OF : [birth year] PHYSICIAN: KENNY LYNN MD REPORT #: [id number] REPORT IS CONFIDENTIAL AND NOT TO BE RELEASED WITHOUT AUTHORIZATION
--- NOTE | 2018-06-25 18:19 | NUR ---
CALLED TO UPDATE ON PT INCREASE IN HR TO 100'S-110'S, ALSO BP IS NOW 132/76 (89). NO NEW ORDERS AT THIS TIME, CONTINUE TO MONITOR.
--- NOTE | 2018-06-25 18:48 | NUR ---
BLADDER SCANNED PT FOR 591 ML IN BLADDER. DISCUSSED POSIBILITY OF HAVING TO PLACE A URINARY CATH, PT STATES "I REALLY DON'T WANT TO". PT WOULD LIKE TO TRY TO VOID AGAIN. PT STOOD AT BEDSIDE AND IS ABLE TO VOID 250 ML.
--- NOTE | 2018-06-25 19:37 | NUR ---
REPORT RECEIVED, PT RESTING IN BED, WATCHING TV, PT AOX4, APPROPRIATE, PT REPOSITIONED IN BED, FLOATED ON PILLOWS PER PT'S REQUEST, IV FLUIDS INFUSING PER EMAR WNL, NO REQUESTS AT THIS TIME, CALL LIGHT WITHIN REACH. FALL PRECAUTIONS IN PLACE.
--- NOTE | 2018-06-25 20:50 | NUR ---
IN ROOM FOR PT ASSESSMENT PT UP TO BEDSIDE TO VOID, PT VOIDED 150 MLS OF CLEAR YELLOW URINE, 1 PERSON ASSIST/FWW, PT BACK TO BED, BLADDER SCAN TO SEE RESIDUAL URINE AFTER VOID, BLADDER SCAN AMOUNT WAS 238. PT'S BP 86/46 (56), HR 80'S, NO C/O LIGHT HEADEDNESS OR DIZZINESS, DR. LYNN CALLED AND NOTIFIED OF PT'S HYPOTENSION. RECEIVED NEW ORDER FOR LR BOLUS OF 500 ML OVER 1 HOUR. TORB, NO FURTHER ORDERS.
--- NOTE | 2018-06-25 22:06 | NUR ---
PT'S 500 ML FLUID BOLUS COMPLETE, PT'S BP 95/56 (66), HR 88, DR. LYNN NOTIFIED OF PT'S BP, DR. LYNN ORDERED TO CONTINUE IV FLUIDS AT PREVIOUS CONTINUOUS RATE OF 125, IF PT'S SYSTOLIC BP FALLS BELOW 90 THEN TO GIVE THE PT A 250 ML BOLUS OF LR OVER 30 MINS. AND THEN TO CALL HIM IF THE PT'S BP DOES NOT IMPROVE AFTERWARDS. TORB,
--- NOTE | 2018-06-25 22:17 | NUR ---
PT ASSISTED TO VOID AT BEDSIDE, 1 PERSON ASSIST/FWW, TOLERATED WELL. PT VOIDED 250 MLS OF CLEAR YELLOW URINE. PT BACK TO BED, REPOSTIONED IN BED, HIPS FLOATED PER PT'S REQUESTS. NO FURTHER NEEDS AT THIS TIME. IV FLUIDS INFUSING PER EMAR WNL. CALL LIGHT WITHIN REACH. BED ALARM ON.
--- NOTE | 2018-06-25 23:42 | NUR ---
PT RESTING IN BED, EYES CLOSED, BREATHS EVEN, UNLABORED, NO REQUESTS AT THIS TIME, IV FLUIDS INFUSING PER EMAR WNL, PT'S VSS, HR 84, BP: 97/54 (64), O2 SAT 99% ON RA. FALL PRECAUTIONS IN PLACE. BED ALARM ON. CALL LIGHT WITHIN REACH.
--- NOTE | 2018-06-26 00:39 | NUR ---
PT ASSISTED TO VOID AT BEDSIDE WITH 1 PERSON ASSIST/FWW, PT VOIDED 200 MLS OF CLEAR YELLOW URINE, PT BACK TO BED, REPOSITIONED, PT'S DRESSING/SOCK TAKEN OFF OF BILATERAL LOWER LEGS PER PT'S REQUEST. NO FURTHER NEEDS AT THIS TIME, CALL LIGHT WITHIN REACH. FALL PRECAUTIONS IN PLACE. ASSESSMENT COMPLETE, FAINT CRACKLES IN LUNG BASES REMAIN, PT HAS OCCASIONAL NONPRODUCTIVE COUGH, PT ENCOURAGED TO CDB. NO C/O LIGHT HEADEDNESS OR DIZZINES, VSS.
--- NOTE | 2018-06-26 01:33 | NUR ---
PT RESTING IN BED, EYES CLOSED, BREATHS EVEN, UNLABORED, VSS, HR 79, BP 94/53 (61), ON RA, O2 SAT 97%, RR 16, NO REQUESTS AT THIS TIME, CALL LIGHT WITHIN REACH. FALL PRECAUTIONS IN PLACE. IV FLUIDS INFUSING PER EMAR WNL.
--- NOTE | 2018-06-26 02:39 | NUR ---
PT ASSISTED UP TO VOID AT BEDSIDE, 1 PERSON ASSIST/FWW, PT TOLERATED WELL. PT VOIDED 250 MLS OF CLEAR YELLOW URINE, PT BACK TO BED, VSS, NO REQUESTS AT THIS TIME, CALL LIGHT WITHIN REACH. HR 83, BP 107/64 (76), ON RA, O2 SAT 96%. FALL PRECAUTIONS IN PLACE. BED ALARM ON.
--- NOTE | 2018-06-26 04:22 | NUR ---
PT RESTING IN BED, DENIES ANY NEEDS AT THIS TIME, LS REMAIN UNCHANGED, FAINT CRACKLES/DIMINISHED IN BILATERAL BASES, PT CONTINUES TO HAVE DRY OCCASIONAL COUGH, NO C/O SOB/CP, IV FLUIDS INFUSING PER EMAR WNL. PT'S VSS, HR 77, BP 91/53 (62), CALL LIGHT WITHIN REACH. BED ALARM ON. FALL PRECAUTIONS IN PLACE.
--- NOTE | 2018-06-26 04:55 | NUR ---
PT UP TO BEDSIDE TO VOID IN URINAL WITH 1 PERSON ASSIST/FWW, PT TOLERATED WELL. VSS, ON RA, NO C/O LIGHT HEADEDNESS OR DIZZINESS. PT VOIDED 175 MLS OF CLEAR YELLOW URINE, PT BACK TO BED REPOSITIONED PER REQUEST. NO FURTHER NEEDS AT THIS TIME. IV FLUIDS INFUSING PER EMAR WNL. CALL LIGHT WITHIN REACH. BED ALARM ON.
--- NOTE | 2018-06-26 04:56 | NUR ---
PT AOX4 THIS SHIFT, APPROPRIATE, PT NOTED TO BE HYPOTENSIVE AT BEGINNING OF SHIFT, RECEIVED A 500 ML BOLUS OF LR, PT'S BP HAS BEEN OVER 90 SYSTOLIC SINCE BOLUS, HR 80'S, ON RA, O2 SAT >95%, NO C/O LIGHT HEADEDNESS OR DIZZINESS. PT HAS NOT HAD A BM THIS SHIFT. PT HAS VOIDED WELL, FREQUENT SMALL AMOUNTS. PT IS A 1 PERSON ASSIST/FWW TO STAND AT BEDSIDE TO VOID IN URINAL, OTHERWISE PT IS A 2PA/FWW, PT AFEBRILE, CDB ENCOURAGED, IV FLUID: D5LR INFUSING AT 125. USES CALL LIGHT APPROPRIATELY.
--- NOTE | 2018-06-26 06:58 | NUR ---
PT UP TO BSC WITH 1 PERSON ASSIST/FWW, PT DID HAVE SMALL SEMI LIQUID/SEMI FORMED BM, SAMPLE SENT TO LAB. PT NOTED TO BE INCONTINENT OF URINE, ATTENDS CHANGED, PT BACK TO BED. REPOSITIONED PER PT'S REQUEST, NO FUTHER NEEDS AT THIS TIME, IV FLUIDS INFUSING PER EMAR WNL. ON RA, NO C/O SOB/CP, VSS. CALL LIGHT WITHIN REACH. FALL PRECAUTIONS IN PLACE.
--- NOTE | 2018-06-26 07:55 | NUR ---
PATIENT AWAKE AND LAYING IN BED. STATES HE HAD DIFFICULTY SLEEPING LAST NIGHT. VITAL SIGNS AND ASSESSMENT COMPLETED. D5LR RUNNING AT 125 MLS/HR. PATIENT AMBULATED TO BEDSIDE CHAIR WITH FEET ELEVATED AND PILLOW POSITIONED UNDERNEATH HIS LEGS. BREAKFAST ORDERED. PATIENT DENIES ANY FUTHER NEEDS AT THIS TIME, CALL LIGHT WITHIN REACH.
--- NOTE | 2018-06-26 08:36 | NUR ---
PATIENT SITTING IN BEDSIDE CHAIR EATING BREAKFAST. TWO PERSON ASSIST REQUIRED FOR PATIENT TO STAND AND VOID IN URINAL. 225 MLS OF YELLOW URINE VOIDED, NO ODOR NOTED. BP OF 94/61 TAKEN AFTER PATIENT SITTING BACK IN CHAIR. PATIENT DENIES ANY FURTHER NEEDS AT THIS TIME, CALL LIGHT WITHIN REACH.
--- NOTE | 2018-06-26 15:29 | NUR ---
PT'S ARRIVED JUST I WAS ABOUT TO ENTER PTS' RM. HE IS SURPRISINGLY ALERT AND ORIENTED. PLEASANT VISIT, PT REQUESTED PRAYER. WILL FOLLOW NEEDED
--- NOTE | 2018-06-26 15:31 | NUR ---
Medications reconciled with pharmacy records and PCP chart notes
--- NOTE | 2018-06-26 15:59 | NUR ---
PT'S BLOOD PRESSURE FOUND TO BE 75/39 AND 78/41 AT 1430. MANUAL BP TAKEN AND FOUND TO BE 78/46. DR. LYNN CALLED - PT HAS NOT TRANSFERRED TO MED/SURG YET BUT WAS SUPPOSED TO TRANSFER. HOLDING OFF ON TRANSFER AT THIS TIME AND ORDER REC'D TO GIVE 500 ML BOLUS OVER 1 HR . NEW IV STARTED IN LEFT AC. PT'S FAMILY IN ROOM AND CONCERNED THAT PATIENT APPEARS PALE AND MORE DROWSY THAN IS NORMAL FOR HIM. PT'S AND DAUGHTER IN LAW UPDATED. PT DENIES FEELING DIZZY OR DROWSY OR SHORT OF BREATH. PT EAGER TO GO HOME TOMORROW. DISCUSSED WITH PATIENT HIS CURRENT VITAL SIGNS.
--- NOTE | 2018-06-26 19:56 | NUR ---
DR LYNN IN DEPT. AWARE OF BP AND INFORMED LABS HAVE BEEN SENT. INSTRUCTED TO GIVE THE SOLUCORTEF PREVIOUSLY ORDERED, BUT HOLD BOLUS FOR NOW. PT IS ALERT AND ORIENTED, VISITING WITH . HANDS ARE SL COOL TO TOUCH, FEET WARM. FEET ARE SL RED, ALMOST FLUSHED WHILE SHINS ARE RED AND WARM. HAS SMALL DRIED SCAB TO R BUNION AREA. PT IS SOMEWHAT WEAK, NEEDED ASSISTANCE TO SIT FORWARD FOR LUNG AUSCULTAION. DISCUSSED WITH PT'S REQUEST TO AMB TO BR IF HE NEEDS TO HAVE BM. INFORMED IT DEPENDED ON HIS BP.
--- NOTE | 2018-06-26 20:20 | NUR ---
PT STOOD AT BEDSIDE TO VOID. REUQIRES 1 PERSON ASSIST TO SIT UP AND THEN ABLE TO TO USE WALKER TO STAND, NEEDED ASSISTANCE TO GET LEGS BACK INTO BED. IS GENERALLY WEAK. NO SOB.
--- NOTE | 2018-06-26 21:38 | NUR ---
READY FOR SLEEP, CPAP IN PLACE.
--- NOTE | 2018-06-27 00:03 | NUR ---
NOTED PT ADJUSITN CPAP MASK, IN TO ASSESS PT. HAD BEEN SLEEPING WELL. UP WITH ASSSIST TO BEDSIDE TO VOID. AMY BEING UP WELL. PT'S COUGH HAS BEEN BETTER AND HAVE NOT NEEDED TO MEDICATE PT.
--- NOTE | 2018-06-27 02:41 | NUR ---
HAS BEEN SLEEPING WELL. PT TAKING CPAP OFF, STATES HE NEEDS TO VOID. ASSISTED TO VOID AT BEDSIDE. IS MOVING BETTER AND REQUIRING LESS ASSISTANCE IN MOVING LEGS. PREFERS NOT TO WEAR CPAP AT THIS TIME.
--- NOTE | 2018-06-27 03:57 | NUR ---
SLEEPING WITHOUGHT CPAP ON. SATS 99%
--- NOTE | 2018-06-27 05:49 | NUR ---
AWAKENED FOR MEDS AND LABS. HAD BEEN SLEEPING WELL. C/O LEGS BEEING SORE. SCD'S OFF FOR NOW. THE R LOWER LEG IS A LITTLE DARKER RED THAN LAST NIGHT SINCE SCD'S APPLIED. STATES HE WILL NEED TO GO TO THE BATHROOM SOON BUT NO RIGHT NOW.
--- NOTE | 2018-06-27 07:37 | NUR ---
PATIENT AWAKE AND LAYING IN BED. STATES HE SLEPT WELL LAST NIGHT. PATIENT AMBULATED TO TOILET WITH ONE PERSON STANDBY ASSIST. BREAKFAST ORDERED. PATIENT AMBULATED BACK TO BEDSIDE CHAIR. ASSESSMENT COMPLETED.
--- NOTE | 2018-06-27 09:00 | NUR ---
TOOK BREAKFAST WELL, DENIES PROBLEMS.
--- NOTE | 2018-06-27 11:10 | NUR ---
DR. LYNN IN ROOM WITH PATIENT. PATIENTS IN ROOM. PATIENT SITTING IN CHAIR, FLUIDS INFUSING. MANUAL BP IN RA OF 92/50 AND MANUAL BP IN LA OF 90/50.
--- NOTE | 2018-06-27 13:01 | NUR ---
PT SITTING IN CHAIR, DOZING OFF AND ON. HE MENTIONED THAT HE SLEPT WELL LAST NIGHT AND HATED TO ADMIT THAT HIS SON WAS RIGHT ABOUT THE HELP SLEEPING HE WOULD RECEIVE FROM THE CPAP. PT IS AMAZINGLY ALERT AND ORIENTED. HIS CAME IN, THANKED ME FOR VISITING. RN AND SN IN TO CHECK ON IV ALARM. GAVE BLESSING AND PT REQUESTED A VISIT FROM FR JONES. I WILL ALERT HIM. WILL FOLLOW NEEDED
--- NOTE | 2018-06-27 13:23 | NUR ---
IV PUMP WAS BEEPING, SMALL AMOUNT OF TENSION PLACED ON IV CATHETER WITH TAPE. IV WAS ABLE TO ASPIRATE BLOOD AND FLUSHES EASILY.
--- NOTE | 2018-06-27 14:25 | NUR ---
PATIENT AMBULATED FROM CHAIR TO BED WITH 2 PERSON STANDBY ASSIST. 22G IV STARTED BY MINGO GAVIRIA IN HIS RIGHT FOREARM. PATIENTS IV IN HIS RIGHT AC IS D/C'D WITH TIP INTACT. PATIENTS DAUGHTER IN LAW IN ROOM VISITING. PATIENT DENIES ANY FURTHER NEEDS AT THIS TIME, CALL LIGHT WITHIN REACH.
--- NOTE | 2018-06-27 15:53 | NUR ---
PATIENT AMBULATED TO TOILET WITH ONE PERSON ASSIST. PATIENT VOIDED 275 MLS OF CONCENTRATED URINE, CHALKY ODOR NOTED. PATIENT AMBULATED BACK TO BED FOR A BED BATH. PATIENT RECEIVING ECHO AT THE BEDSIDE. WARM BLANKETS PROVIDED AND NO FURTHER NEEDS AT THIS TIME. CALL LIGHT WITHIN REACH.
--- NOTE | 2018-06-27 16:29 | NUR ---
PATIENT GIVEN BED BATH. ECHO DONE. PT NOW RESTING IN BED. PT NOW IN ISOLATION PRECAUTIONS FOR C-DIFF. IVF D/C PER DR. LYNN.
--- NOTE | 2018-06-27 17:55 | NUR ---
PATIENT IV IN LEFT AC D/C'd WITH TIP INTACT. PATIENTS IN ROOM VISITING. MANUAL BLOOD PRESSURE OF 118/64. WARM BLANKET PROVIDED FOR PATIENT. DENIES ANY FURTHER NEED AT THIS TIME, CALL LIGHT WITHIN REACH.
--- NOTE | 2018-06-27 18:54 | NUR ---
PATIENT SITTING UP IN BED EATING DINNER. PATIENTS IN ROOM VISITING.
--- NOTE | 2018-06-27 20:31 | NUR ---
SHIFT REPORT RECEIVED FROM SN JUSTUS. ASSESSMENT COMPLETED AT THIS TIME. PT IS ALERT/ORIENTED, DENIES PAIN. LUNGS SOUND CLEAR AT THIS TIME, RA. HR REGULAR, VITAL SIGNS STABLE. IV PATENT, DRESSING INTACT, SL. 1+EDEMA TO BLE, SKIN TO BLE APPEARS LINDA. SCD'S OFF THEY CAUSE PAIN TO BLE. PT WATCHING BASKETBALL GAME, STATES HE WILL CALL WHEN HE IS READY FOR HIS CPAP. CALL LIGHT WITHIN REACH.
--- NOTE | 2018-06-27 21:08 | NUR ---
LUMP INSPECTOR STEVENSON CALLED WITH CRITICAL [facility]ONIN: 0.066. DR. LYNN NOTIFIED AT THIS TIME. NO NEW ORDERS.
--- NOTE | 2018-06-27 22:20 | NUR ---
PT CALLED AND NEEDED TO GO TO BATHROOM. UP WITH SBA AND FWW, AMBULATED TO THE BATHROOM WITHOUT DIFFICULTY. PT ABLE TO VOID 300ML, BUT DID NOT HAVE BM. PT BACK TO BED AT THIS TIME. CPAP PLACED BY PT. WARM BLANKET PROVIDED AND WATER REFRESHED PER REQUEST. CALL LIGHT REMAINS WITHIN REACH.
--- NOTE | 2018-06-28 00:09 | NUR ---
IN TO CHECK ON PT WHO WOKE WHEN I ENTERED ROOM. VITAL SIGNS STABLE. LUNGS REMAIN CLEAR, PT'S CPAP IN PLACE. DENTURES REMOVED AND CLEANED, CURRENTLY SOAKING NEAR THE SINK. PT DENIES PAIN. DENIES REQUESTS AT THIS TIME.
--- NOTE | 2018-06-28 03:30 | NUR ---
PT CALLED AND NEEDED TO USE BATHROOM, UP TO BEDSIDE TO VOID IN URINAL AND RETURNED TO BED. WITHIN 5 MINUTES, PT STATED HE THOUGHT HE ALSO NEEDED TO HAVE BM, UP WITH SBA AND FWW TO BATHROOM. PT VOIDED TOTAL 200ML AND HAD MEDIUM, FORMED BM. RETURNED TO BED. ASSESSMENT COMPLETED, NO CHANGES FROM PREVIOUS ASSESSMENT. NO FURTHER REQUESTS AT THIS TIME, CALL LIGHT WITHIN REACH.
--- NOTE | 2018-06-28 06:48 | NUR ---
PT APPEARS TO BE SLEEPING AT THIS TIME, NO APPARENT DISTRESS. RR:21, HR:82. RESPIRATIONS EVEN AND UNLABORED. WILL ALLOW FOR REST.
--- NOTE | 2018-06-28 08:00 | NUR ---
Pt UPSET WITH HIS CARE LAST NIGHT. PT STATES "I HAD A BAD NIGHT LAST NIGHT. THE STAFF DID NOT CHECK ON ME OFTEN THEY SHOULD. I WAS MESSED UP IN MY BLANKETS AND HAD TO GO TO THE BATHROOM." WHEN ASKED IF HE USED HIS CALL LIGHT? PT STATES "NO, I DID NOT WANT TO WAKE THEM UP. THEY WHERE SLEEPING I THINK?" EXPLAINED TO PT THAT HE NEEDS TO USE HIS CALL LIGHT WHEN HE NEEDS SOMETHING SO THAT STAFF KNOWS. PT FELT HE WAS FEELING BETTER AFTER TALKING WITH STAFF, "I DONT WANT ANYONE TO LOSE THEIR JOB" PT FELT HE WAS UPSET AND AFTER TALKING WITH STAFF HE FELT BETTER AND SETTLED DOWN. PT GIVEN BATH, SHAMPOO AND UP TO CHAIR. CALL LIGHT WITHIN REACH. BKF ORDERED AND PT IS CURRENLTY EATTING BKF.
--- NOTE | 2018-06-28 09:29 | NUR ---
PT SON DR ELADIA HENRY INTO SEE HIM AT THIS TIME.
--- NOTE | 2018-06-28 10:02 | NUR ---
PATIENT'S SON CAME AND VISITED FOR APPROX 15 MINUTES. PATIENT IS SITTING UPRIGHT IN THE CHAIR RESTING. PATIENT DENIES ANY PAIN OR SOB. REFILLED PATIENT'S WATER. PATIENT HAS NO OTHER REQUESTS AT THIS TIME.
--- NOTE | 2018-06-28 10:48 | NUR ---
PT SLEEPING IN CHAIR. DID NOT DISTURB. WILL CHECK BACK
--- NOTE | 2018-06-28 11:27 | NUR ---
1120: Pt arrived from [facility] and used the br and was helped to bed per his request. Report recieved from [facility]. Pt denies any pain or other problems at this time. Pt voided 450 ml of clear yellow urine. Bed alarm was placed as the pt is somewhat confused not being able to answer what year it is. He is alert to place and understands why he is here. Pt oriented to the room and was instructed to call before getting out of bed which he states understanding.
--- NOTE | 2018-06-28 12:21 | NUR ---
PT RESTING IN HIS BED AND IS AWAITING HIS LUNCH. PT VISITING WITH HIS AT THIS TIME, SHE WAS INSTUCTED IN PRECAUTIONS DUE TO HIS C-DIFF.
--- NOTE | 2018-06-28 12:27 | NUR ---
THIS ZOO DIRECTOR AGREES WITH [facility] CHARTING.
--- NOTE | 2018-06-28 13:14 | NUR ---
BILAT LOWER LEGS WRAPPED WITH CAST PADDING AND NAV WRAPS. PT TOLERATED WELL. LOWER LEGS ELEVATED WELL.
--- NOTE | 2018-06-28 14:30 | NUR ---
PT MOVED TO M/S 113 FROM CCU. PT ALERT, ORIENTED AND UPSET MILDLY. IN THE TRANSFER, HIS CELL PHONE HAS BEEN MISPLACED. [facility] ST[facility]FF LOOKING FOR PHONE. HAD PRAYER WITH PT FOR A LITTLE "MIRACLE" TO FIND HIS PHONE. WILL CONTINUE TO FOLLOW NEEDED
--- NOTE | 2018-06-28 15:31 | NUR ---
PT RESTING IN HIS BED VISITING WITH HIS . HE DENIES ANY PAIN OR NEW PROBLEMS. CALL BOWMAN WITHIN REACH AND BED ALARM IS ON.
--- NOTE | 2018-06-28 15:47 | NUR ---
Pt given a warm blanket per his request. He states the wraps on his legs feels good and that he likes them in place.
--- NOTE | 2018-06-28 16:41 | NUR ---
Pt denies any problems at this time. Pt just ordered his dinner.
--- NOTE | 2018-06-28 17:34 | NUR ---
PT TRANSFERED TO MED-SURG TODAY. HIS BLOOD PRESSURE HAS REMAINED STABLE SINCE HE HAS ARRIVED. HE IS POSITIVE FOR C-DIFF AND REMAINS ON PRECAUTIONS. SOME CONFUSION IS NOTED AND A BED AND CHAIR ALARMS ARE BEING USED. PT STATES HE IS COMFORTABLE AND HAD NO COMPLAINTS THIS SHIFT.
--- NOTE | 2018-06-28 18:09 | NUR ---
PT HELPED BACK TO BED AFTER USING THE BR. PT VOIDED A MODERATE SIZED GREEN FORMED STOOL AND VOIDED WELL. PT DENIES ANY PAIN OR NEW PROBLEMS. BED ALARM IS ON AND CALL BOWMAN IS IN REACH.
--- NOTE | 2018-06-28 19:24 | NUR ---
IN ROOM FOR REPORT, PT IS AWAKE IN BED. HE DENIES NEEDS AT THIS TIME. CALL LIGHT IS WITHIN REACH.
--- NOTE | 2018-06-28 21:55 | NUR ---
IN ROOM TO ADMINISTER MEDICAITONS. RT IS IN THE ROOM GETTING CPAP SET UP. PT DENIES PAIN AND ANY NUMBNESS OR TINGLING. HE IS FORGETFULL BUT ALERT. WARM BLANKET PROVIDED AND PT DENIES FURTHER NEEDS AT THIS TIME. CALL LIGHT IS WITHIN REACH.
--- NOTE | 2018-06-28 23:05 | NUR ---
PT IS RESTING WITH EYES CLOSED, CPAP IN ON, RR IS EVEN AND NONLABORED. CALL LIGHT IS WITHIN REACH.
--- NOTE | 2018-06-29 00:25 | NUR ---
PT IS RESTING WITH EYES CLOSED, RESPIRATIONS ARE EVEN AND NONLABORED ON CPAP. CALL LIGHT IS WITHIN REACH.
--- NOTE | 2018-06-29 02:03 | NUR ---
PT CALLED TO USE RESTROOM. TAMIE GREER ASSISTED HIM TO THE RESTROOM AND BACK TO BED. PT DENIES PAIN AT THIS TIME. LEG DRESSINGS ARE CDI. HE DENIES NEEDS AT THIS TIME. CALL LIGHT IS CLOSE AND BED ALARM IS ON.
--- NOTE | 2018-06-29 03:04 | NUR ---
HELPED PT USE THE URINAL AT THE SIDE OF HIS BED. BEDSIDE TABLE AND CALL LIGHT IN REACH.
--- NOTE | 2018-06-29 03:05 | NUR ---
PT CALLED TO GET HELP PULLING UP BLANKETS. HE DENIES FURTHER NEEDS AT THIS TIME. CALL LIGHT IS WITHIN REACH AND BED ALARM IS ON.
--- NOTE | 2018-06-29 03:58 | NUR ---
PT IS RESTING WITH EYES CLOSED, RESPIRATIONS ARE EVEN AND NONLABORED. CALL LIGHT IS WITHIN REACH.
--- NOTE | 2018-06-29 05:20 | NUR ---
ASSISTED PT TO USE URINAL AT BEDSIDE. HE IS BACK IN BED AT THIS TIME AND GAVE HIS BREAKFAST ORDER. HE DENIES FURTHER NEEDS AT THIS TIME. CALL LIGHT IS WITHIN REACH AND BED ALARM IS ON.
--- NOTE | 2018-06-29 05:22 | NUR ---
PT STATES HE SLEPT WELL LAST NIGHT. HE STARTED THE NIGHT WIHT IS CPAP ON AND TOOK IT OFF PART WAY THROUGH THE NIGHT. HE AMBULATES SBA WITH FWW. HE DENIES PAIN AND STATES HE IS STARTING TO FEEL BETTER. PT HAD A FORMED BM YESTERDAY AND NO MORE OVER NIGHT. IV IS SL AND PT IS ON A HEART HEALTHY DIET. HE HAS DRESSINGS IN PLACE ON BILAT LE, TO BE CHANGED DAILY. URINE OUTPUT HAS BEEN ON THE LOW END BUT QUANITY SUFFICIENT.
--- NOTE | 2018-06-29 06:25 | NUR ---
IN ROOM TO ADMINISTER THYROID MEDICATION. PT DENIES FURTHER NEEDS. CALL LIGHT IS WITHIN REACH.
--- NOTE | 2018-06-29 07:10 | NUR ---
BEDSIDE HANDOFF REPORT RECIEVED FROM FIRE CONTROL MECHANIC RN. PT SLEEPING, LEFT UNDISTURBED, BED ALARM ON.
--- NOTE | 2018-06-29 09:10 | NUR ---
PT SITTING IN CHAIR. PT ALERT/ORIENTED. PT ON ROOM AIR, LUNG SOUNDS CLEAR, DENIES SOB. PT SLIGHTLY HYPTENISVE, BP 100/59, DISCUSSED AMIODERONE WITH DR LYNN, OK TO GIVE. PT DENIES PAIN. PT WITH EDEMA TO RIGHT ELBOW AND SLIGHT EDEMA TO BLE. BOWEL TONES ACTIVE, DENIES NAUSEA, GOOD APPETITE, ATE 100% OF BREAKFAST. IV SALINE LOCKED. DISCUSSED PLAN OF CARE FOR THE DAY. PT DENIES OTHER NEEDS AT THIS TIME.
--- NOTE | 2018-06-29 11:44 | NUR ---
PT HAD JUST FINISHED P.T.WITH RAGHU. HE'S BACK IN HIS CHAIR, WELCOMED ME IN. PT MENTIONED THAT HE THOUGHT HE WAS TO BE DC'D TODAY. UNFORTUNATELY HIS CELL PHONE IS STILL MISSING. I SENSED HE JUST NEEDED TO REST A MOMENT, GAVE BLESSING. WILL FOLLOW NEEDED
[2018-06-29] MEDS ORDERED: AMIODARONE HCL200 MG PO (11:51)
[2018-06-29] MEDS ORDERED: METRONIDAZOLE500 MG PO (11:53)
== END 2018-06-29 15:25 | disposition home or self-care (01) | DRG 683 ==
LOC: ED 12:14 → CCU 15:19 → MS 06-28 11:15
PROVIDERS: ADMIT Internal Medicine
DX: N17.9 Acute kidney failure, unspecified (principal); A04.72 Enterocolitis due to Clostridium difficile, not specified as recurrent; I50.22 Chronic systolic (congestive) heart failure; E86.0 Dehydration; E86.1 Hypovolemia; N18.3 Chronic kidney disease, stage 3 (moderate); E03.9 Hypothyroidism, unspecified; K21.9 Gastro-esophageal reflux disease without esophagitis; I48.0 Paroxysmal atrial fibrillation; J20.9 Acute bronchitis, unspecified; I95.9 Hypotension, unspecified; L30.9 Dermatitis, unspecified; D63.1 Anemia in chronic kidney disease; E53.8 Deficiency of other specified B group vitamins; E55.9 Vitamin D deficiency, unspecified; Z85.46 Personal history of malignant neoplasm of prostate; Z79.01 Long term (current) use of anticoagulants; Z79.899 Other long term (current) drug therapy
CPT/HCPCS: 36415; 51798; 71045; 80048; 80053; 80400; 81001; 82306; 82533; 82728; 83540; 83605; 83735; 83880; 84466; 84484; 85025; 85610; 85730; 86850; 86900; 86901; 87045; 87046; 87077; 87177; 87205; 87209; 87493; 93005; 93010; 93306; 94640; 94760; 96361; 96374; 97162; 97166; 97535; 99285-25; C9113; J0696; J0834; J1720; J3475; J7030; J7120